=== PATIENT | female | born 1955 | race Caucasian/White ===

== ENCOUNTER 2017-04-12 17:08 | Inpatient (IN) ==
[2017-04-12 17:39] LABS: MANUAL DIFF NEEDED? NO
[2017-04-12 17:42] LABS: BASO% 0.4 % (0.0-0.8); EOS# 0.05 X1000 (0.0-0.7); EOS% 0.5 % (0.0-10.0); HEMATOCRIT 45.5 % (37.0-47.0); HEMOGLOBIN 16.4 g/dL (12.0-16.0); LYMPH# 3.56 X1000 (1.2-3.4); LYMPH% 36.6 % (20.5-51.1); MCH 30.8 PG (27-31); MCV 85.4 FL (81-99); MONO# 0.75 X1000 (0.11-0.59); MONO% 7.7 % (1.7-9.3); MPV 10.7 FL (7.4-10.4); NEUT% 54.8 % (42.2-75.2); PLT 322 X1000 (130-400); RBC 5.33 XMIL (4.2-5.4)
[2017-04-12 17:52] LABS: INR 1.02; PROTIME 10.7 Seconds (9.2-11.7); PTT 30.6 Seconds (22.0-36.0)
[2017-04-12 18:00] LABS: AGAP 24; ALBUMIN 4.3 g/dL (3.5-5.0); ALKALINE PHOSPHATASE 58 U/L (32-104); BUN 6 mg/dL (8-22); CALCIUM 10.4 mg/dL (8.8-10.2); CHLORIDE 93 mmol/L (98-107); COSMO 271; GOT 12 U/L (10-30); GPT 6 U/L (10-36); POTASSIUM 2.8 mmol/L (3.5-5.1); SODIUM 136 mmol/L (136-145); TCO2 19 mmol/L (25-35); TOTAL BILIRUBIN 0.58 mg/dL (0.20-1.00); TOTAL PROTEIN 7.5 g/dL (6.3-8.3)
[2017-04-12 18:42] LABS: URINE MICRO REVIEW NEEDED? NO; URINE SOURCE VOIDED
--- NOTE | 2017-04-12 18:45 | Diag Imaging Result Doc PS360 ---
EXAM: CHEST-PORTABLE - 04/12/2017 HISTORY: unkempt TECHNIQUE: Portable chest 1828 COMPARISON: 12/03/2012 FINDINGS: Heart size is normal. There are apparent mild emphysematous changes. There is a questionable small nodular density at the mid right chest, but this could be artifactual from summation shadows or skin fold. There is no consolidation, pleural effusion, or pneumothorax identified. IMPRESSION: Mild emphysematous changes. Questionable small nodular density at mid right chest versus artifact. Follow-up PA and lateral exam is recommended when patient's condition permits. No evidence of acute disease otherwise. Electronically signed by Bruno Espinoza 04/12/2017 6:42 PM
[2017-04-12 18:48] LABS: UR EPITHELIAL CELLS <10 /HPF (<10); URINE BACTERIA 2+ /HPF; URINE RBC <10 /HPF (<10); URINE WBC <10 /HPF (<10)
[2017-04-12 18:49] LABS: BILIRUBIN URINE NEGATIVE (NEGATIVE); BLOOD URINE NEGATIVE (NEGATIVE); COLOR YELLOW; GLUCOSE URINE NEGATIVE (NEGATIVE); LEUKOCYTES URINE NEGATIVE (NEGATIVE); NITRITE URINE NEGATIVE (NEGATIVE); PROTEIN URINE NEGATIVE (NEGATIVE); SP GRAVITY URINE 1.004; TURBIDITY URINE CLEAR (CLEAR); UROBILINOGEN URINE NORMAL (NORMAL)
[2017-04-12 19:02] LABS: UR AMPHETAMINES QUAL NONE DETECTED (NONE DETECT); UR BARBITUATES QUAL NONE DETECTED (NONE DETECT); UR BENZODIAZEPIN QUAL NONE DETECTED (NONE DETECT); UR CANNABINOIDS QUAL NONE DETECTED (NONE DETECT); UR COCAINE QUAL NONE DETECTED (NONE DETECT); UR METHADONE QUAL NONE DETECTED (NONE DETECT); UR OPIATES QUAL NONE DETECTED (NONE DETECT); UR OXYCODONE QUAL NONE DETECTED (NONE DETECT); UR PCP QUAL NONE DETECTED (NONE DETECT)
[2017-04-12] MEDS ORDERED: MICRO-K PO ONE (19:02)
--- NOTE | 2017-04-12 21:42 | HISTORY AND PHYSICAL ---
REASON FOR ADMISSION: Worsening generalized weakness for several months. Inability to stand today. HISTORY OF PRESENT ILLNESS: Ms. Hailey Zelaya is a 61-year-old lady with a past medical history of some unspecified psychotic illness, hyperlipidemia, reflux disease, arthritis and COPD. She comes in today by EMS after she called her sister to complain that she was unable to get up for the last 24 hours. Her sister in turn called the police and the police in turn called EMS who brought her in. The patient informs us that she had been trying to get her 's and son's attention to get her seen by neuropsychology medical consultant but because of her dwindling physical condition but they seem to not take it seriously. The patient reports that her appetite has been declining for several months and prior to that she has been having frequent gagging episodes whenever she eats anything especially liquids. She admits to subjective complaints of weight loss but unable to quantify actual weight loss over the last few months. She denies bleeding from any orifice. She denies any fever or chills. She denies any cardiorespiratory complaints. She says her exercise tolerance has significantly declined over the last few weeks but today was the worst day, i.e. being unable to stand on her own 2 feet. Other than the aforementioned gagging she denies any diarrhea or vomiting per se. No abdominal discomfort. She denies any focal neurological type symptoms, but she does complain that she has a dull persistent headache that makes her head feel very heavy. This has been going on for several months and she thinks it has been getting worse. No visual symptoms. REVIEW OF SYSTEMS: A 12 system review was noted as above. She does admit to having chronic auditory hallucinations which manifests some music that only she perceives. No visual hallucinations. No suicidal type ideation. She used to be followed by a psychiatric clinic but since she lost her insurance she has been unable to follow up. No mention of cramping, palpitations or any other symptoms. Patient is having dysphagia to liquids. ALLERGIES: Prozac, penicillin, sulfa. HOME MEDICATIONS: She is not on any home medications. SURGICAL HISTORY: She said she had an appendectomy with some bowel resection following peritonitis from a ruptured appendix. She also states she had 2 C-sections, cataract of the left eye, esophagus stretched out twice. FAMILY HISTORY: Heart disease and diabetes in first-degree relatives. SOCIAL HISTORY: The patient still smokes about a pack a day and thinks about quitting but has no active plan to quit at this time. No alcohol or drug use. She lives with her and son. LABORATORY DATA: White count 95, hemoglobin and hematocrit 16 and 45, platelets 332,000. Chemistry is notable for potassium of 2.8, bicarbonate of 19, anion gap 24, BUN and creatinine 6 and 0.5, glucose 121, calcium 10.4, albumin is normal, troponin is negative, UDS is negative. Urine source: 80 ketones, 2+ bacteria. Chest films shows mild emphysematous changes, questionable small nodes or density in the right lung versus artifact. EKG shows a lot of artifact, normal sinus rhythm, left axis deviation, nonspecific ST-wave changes in the lateral leads. PHYSICAL EXAMINATION: GENERAL: An emaciated, middle-aged, woman who appears older than stated age. She is alert and oriented to person and time with normal mood and affect. VITAL SIGNS: Pulse is 133, temperature 98.6, blood pressure 115/85, respiratory rate 18, 99% on room air. HEENT: Head is normocephalic, atraumatic. Eyes are slightly sunken in but NATALIA. EOMI. Anicteric. ENT examination is grossly normal. No oropharyngeal exudates. No cyanosis. NECK: Supple. No JVD or carotid bruit. No thyromegaly. CHEST: Decreased air entry both lung lovell. No added sounds. CARDIOVASCULAR: First and sounds heart sounds heard. No gallops or rubs. Rhythm is regular. ABDOMEN: Slightly scaphoid, soft, tender. No organomegaly. Bowel sounds are hypoactive. RECTAL EXAMINATION: Deferred at this time. EXTREMITIES: She has very weak distal pulses in all extremities. They are symmetrical. No edema, clubbing or cyanosis. NEUROLOGICAL: No focal deficits. SKIN: She has decreased skin turgor. She has a few tiny ulcerations on her back. MUSCULOSKELETAL EXAMINATION: Patient has severe diffuse muscular atrophy. No gross joint deformities. ASSESSMENT: 1. Severe malnutrition. 2. Hypokalemia. 3. Chronic obstructive pulmonary disease. 4. Right lung nodule. 5. Dysphagia. PLAN: 1. At this time we will aggressively hydrate patient, correct electrolytes. 2. Patient's lung nodule is somewhat worrisome especially since patient is losing weight. She has a smoking history. A CT scan of the thorax has been ordered and this needs to be followed. 3. What is also worrisome is the fact the patient has dysphagia, weight loss and she is a smoker. We will also need to rule out the possibility of squamous cell cancer of the esophagus. Upper GI series has been ordered. Consult Assistant Boiler Operator and dietitian. Start patient on Clinimix for supportive nutrition. 4. She also needs physical therapy. cc: Vadim Morin MD MTDD
[2017-04-12] MEDS ORDERED: ZOFRAN IV PRN (22:18)
[2017-04-12] MEDS ORDERED: NS + KCL 20 MEQ 1,000 ML IV SCH (22:18)
[2017-04-12] MEDS ORDERED: TYLENOL PO PRN (22:18)
[2017-04-12] MEDS ORDERED: CLINIMIX E 4.25%-5% SOLUTION 1,000 ML IV SCH (22:18)
[2017-04-12 23:20] LABS: MAGNESIUM 1.8 mg/dL (1.5-2.7)
[2017-04-13] MEDS: LOVENOX SUBQ SCH ×2 (00:19→00:23)
[2017-04-13] MEDS: THERA M PLUS PO SCH ×2 (00:20→10:13)
[2017-04-13 06:06] LABS: MANUAL DIFF NEEDED? NO
[2017-04-13 06:17] LABS: BASO% 0.2 % (0.0-0.8); EOS# 0.09 X1000 (0.0-0.7); EOS% 0.9 % (0.0-10.0); HEMATOCRIT 42.5 % (37.0-47.0); HEMOGLOBIN 15.2 g/dL (12.0-16.0); IMM GRAN# 0.02 X1000 (0.0-0.04); IMM GRAN% 0.2 % (0.0-0.5); LYMPH# 4.04 X1000 (1.2-3.4); LYMPH% 42.3 % (20.5-51.1); MCH 30.6 PG (27-31); MCHC 35.8 g/dL (33-37); MCV 85.5 FL (81-99); MONO# 0.47 X1000 (0.11-0.59); MONO% 4.9 % (1.7-9.3); MPV 10.9 FL (7.4-10.4); NEUT% 51.5 % (42.2-75.2); PLT 306 X1000 (130-400); RBC 4.97 XMIL (4.2-5.4)
[2017-04-13 06:27] LABS: AGAP 14; ALBUMIN 3.8 g/dL (3.5-5.0); ALKALINE PHOSPHATASE 52 U/L (32-104); BUN 8 mg/dL (8-22); CALCIUM 9.7 mg/dL (8.8-10.2); CHLORIDE 100 mmol/L (98-107); COSMO 282; GOT 9 U/L (10-30); GPT 5 U/L (10-36); POTASSIUM 3.4 mmol/L (3.5-5.1); SODIUM 142 mmol/L (136-145); TCO2 28 mmol/L (25-35); TOTAL BILIRUBIN 0.47 mg/dL (0.20-1.00); TOTAL PROTEIN 6.5 g/dL (6.3-8.3)
--- NOTE | 2017-04-13 09:21 | Diag Imaging Result Doc PS360 ---
EXAM: CT THORAX W/CONTRAST - 04/12/2017 HISTORY: Lung nodule TECHNIQUE: With intravenous contrast. Dose reduction protocol. COMPARISON: 12/15/2012 FINDINGS: There is a right lower lung calcified granuloma from old granulomatous disease which is stable. There is no noncalcified pulmonary nodular lesion identified. There are mild emphysematous changes. There is mild apical scarring. There is no consolidation, pleural effusion, or pneumothorax identified. There are calcified subcarinal mediastinal lymph nodes from old granulosis disease. There are scattered nonspecific small noncalcified mediastinal lymph nodes which appear stable. There are no abnormally enlarged mediastinal or hilar lymph nodes identified. Included sections of upper abdomen show stable 1.7 cm low-density right adrenal nodule, compatible with adenoma. There is a 0.8 cm left renal cyst. IMPRESSION: Mild emphysematous changes. Old granulomatous disease. No evidence of acute disease. No noncalcified pulmonary nodule seen. The air traffic control specialist center radiologist provided primary results at 11:46 PM on 04/12/2017. Electronically signed by Bruno Espinoza 04/13/2017 9:19 AM
--- NOTE | 2017-04-13 10:15 | Diag Imaging Result Doc PS360 ---
EXAM: GI SERIES WITH BA SWALLOW - 04/13/2017 HISTORY: dysphagia wt loss TECHNIQUE: Air contrast GI series with barium swallow. The fluoroscopy time is three minutes and 46 seconds. The radiation doses 1937.0 cGy centimeters square. COMPARISON: Barium swallow of 12/11/2012 FINDINGS: The patient was able to drink the barium and a relatively slow right. There is no esophageal mass or stricture identified. There is no obvious esophageal inflammation seen. There is relatively slow gastric emptying. There is a small amount retained debris in the stomach, this may relate to the patient not being nothing by mouth prior to the exam. There is no gastric outlet obstruction identified. There is no other discrete abnormality identified. There is no ulcer crater identified. IMPRESSION: Relatively slow gastric emptying. No other discrete abnormality identified. Electronically signed by Bruno Espinoza 04/13/2017 10:12 AM
--- NOTE | 2017-04-13 16:32 | PROGRESS NOTE ---
DATE: 04/13/2017 SUBJECTIVE: The patient is still weak, tired. Still limited p.o. intake. No throwing up. No diarrhea. OBJECTIVE: Vital signs: Blood pressure was 123/78, heart rate 115, respiratory 16, temperature 98.7 degrees, 96% on room air. Cardiovascular: Regular rate and rhythm. Pulmonary: Bilateral breath sounds. Clear to auscultation. GI: Soft, nontender, nondistended. Bowel sounds are positive. Abdomen exam benign but scaphoid. LABORATORY DATA: Normal CBC, normal CMP except for potassium 3.4. Liver enzymes were normal. Chest CT showed a nodule but no samson malignancy, mild emphysema, old granulomatous disease, really just not that remarkable. She does have a right adrenal nodule. Her upper GI series did not show obstruction. She had some slow gastric emptying but really otherwise there is certainly no explanation of her dysphagia. PROBLEM LIST: 1. Dysphagia. She reports that food gets stuck. She just cannot eat. There is no evidence of achalasia or stricture based on her upper GI series but because of rather severe weight loss I think we will have to progress with a GI workup or GI evaluation for endoscopy. I think she may need a CT scan of the abdomen because of the profound weight loss. I doubt she will get a scope this weekend and probably will not happen until Saturday. 2. Severe protein-calorie malnutrition. Will continue Clinimix. Dietary has been consulted. We will add Ensure to a diet, will add appetite stimulant and follow. 3. Chronic obstructive pulmonary disease appears to be compensated. Will continue treatment and follow. DISPOSITION: Pending her clinical course. cc: Arnoldo England MD
[2017-04-13] MEDS: NICODERM PATCH TD PRN (18:51)
[2017-04-13] MEDS: CLINIMIX E 4.25%-5% SOLUTION 1,000 ML IV SCH (19:26)
[2017-04-14] MEDS: LOVENOX SUBQ SCH ×2 (00:12→20:33)
[2017-04-14] MEDS: THERA M PLUS PO SCH ×3 (00:13→20:33)
[2017-04-14] MEDS: CLINIMIX E 4.25%-5% SOLUTION 1,000 ML IV SCH ×4 (00:13→19:56)
[2017-04-14] MEDS ORDERED: NS 1,000 ML IV SCH ×2 (05:39→08:17)
[2017-04-14] MEDS ORDERED: NS 1,000 ML IV ONE ×2 (05:39→08:20)
[2017-04-14] MEDS ORDERED: NS 1,000 ML ONE (05:47)
[2017-04-14 05:52] LABS: HEMATOCRIT 43.7 % (37.0-47.0); HEMOGLOBIN 15.5 g/dL (12.0-16.0); MCH 30.7 PG (27-31); MCHC 35.5 g/dL (33-37); MCV 86.5 FL (81-99); MPV 11.4 FL (7.4-10.4); RBC 5.05 XMIL (4.2-5.4)
[2017-04-14 06:29] LABS: AGAP 14; ALKALINE PHOSPHATASE 61 U/L (32-104); BUN 18 mg/dL (8-22); CALCIUM 9.9 mg/dL (8.8-10.2); CHLORIDE 101 mmol/L (98-107); COSMO 280; GOT 142 U/L (10-30); GPT 112 U/L (10-36); POTASSIUM 4.1 mmol/L (3.5-5.1); SODIUM 138 mmol/L (136-145); TCO2 23 mmol/L (25-35); TOTAL BILIRUBIN 0.38 mg/dL (0.20-1.00); TOTAL PROTEIN 5.5 g/dL (6.3-8.3)
[2017-04-14 08:40] LABS: URINE CULTURE NEEDED? NO; URINE MICRO REVIEW NEEDED? NO; URINE SOURCE CATH
[2017-04-14 08:46] LABS: BILIRUBIN URINE NEGATIVE (NEGATIVE); BLOOD URINE NEGATIVE (NEGATIVE); COLOR YELLOW; GLUCOSE URINE NEGATIVE (NEGATIVE); LEUKOCYTES URINE NEGATIVE (NEGATIVE); NITRITE URINE NEGATIVE (NEGATIVE); PROTEIN URINE NEGATIVE (NEGATIVE); SP GRAVITY URINE 1.004; TURBIDITY URINE HAZY (CLEAR); UR EPITHELIAL CELLS >10 /HPF (<10); URINE BACTERIA NEGATIVE /HPF; URINE RBC <10 /HPF (<10); URINE WBC <10 /HPF (<10); UROBILINOGEN URINE NORMAL (NORMAL)
--- NOTE | 2017-04-14 09:16 | Diag Imaging Result Doc PS360 ---
EXAM: ABDOMEN/PELVIS W/PO AND IV CON - 04/14/2017 HISTORY: weight loss, cachexia, dysphagia TECHNIQUE: With oral and intravenous contrast. Dose reduction protocol. COMPARISON: 12/15/2012 FINDINGS: There are artifacts from residual barium in stomach and bowel which limit detail. There are no substantial analysis of the liver, spleen, or pancreas identified. There is an apparent small right adrenal adenoma which is stable. There are no calcified gallstones or pericholecystic inflammation identified. The bilateral kidneys enhance homogeneously. There is no hydronephrosis. There are no substantial enlarged lymph nodes identified. There is no evidence of bowel obstruction. There is no substantial bowel wall thickening identified. There is no free air, free fluid, or abscess identified. Images of pelvis show a small amount of air in the urinary bladder lumen consistent with the presence of Arita catheter. There is no abnormal pelvic mass or fluid collection identified. IMPRESSION: No visible acute abnormality in the abdomen or pelvis. Electronically signed by Bruno Espinoza 04/14/2017 9:14 AM
--- NOTE | 2017-04-14 12:23 | Diag Imaging Result Doc PS360 ---
EXAM: CHEST-PORTABLE - 04/14/2017 HISTORY: fever TECHNIQUE: Portable chest 1200 COMPARISON: 04/12/2017 FINDINGS: Heart size is normal. The lungs appear clear. There is no pleural effusion or pneumothorax identified. IMPRESSION: No evidence of acute disease. Electronically signed by Bruno Espinoza 04/14/2017 12:21 PM
[2017-04-14] MEDS ORDERED: NS NEB INH SCH (12:30)
[2017-04-14] MEDS ORDERED: ELIMITE 5% CREAM TOP ONE (14:28)
[2017-04-14] MEDS: LEVAQUIN 750 MG/D5W 750 MG/150 ML IVPB IV SCH (14:32)
[2017-04-14] MEDS: NS 1,000 ML IV SCH ×2 (14:33→20:35)
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
[2017-04-14] MEDS: KEFZOL 1 GM/D5W 1 GM/50 ML IVPB IV SCH ×2 (16:04→22:17)
[2017-04-14] MEDS ORDERED: MOTRIN PO PRN (16:57)
[2017-04-14] MEDS ORDERED: NS 500 ML IV ONE (19:12)
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
[2017-04-15] MEDS: NEO-SYNEPHRINE 50 MG in NS 250 ML IV SCH ×2 (00:33→18:30)
[2017-04-15] MEDS ORDERED: MOTRIN PO PRN (01:30)
[2017-04-15] MEDS: MOTRIN PO PRN ×2 (01:36→13:21)
[2017-04-15] MEDS: KEFZOL 1 GM/D5W 1 GM/50 ML IVPB IV SCH ×3 (05:45→22:52)
[2017-04-15 05:57] LABS: HEMOGLOBIN 12.8 g/dL (12.0-16.0); MCH 30.9 PG (27-31); MCHC 34.6 g/dL (33-37); MCV 89.4 FL (81-99); MPV 12.1 FL (7.4-10.4); RBC 4.14 XMIL (4.2-5.4)
[2017-04-15 06:23] LABS: AGAP 13; ALBUMIN 2.6 g/dL (3.5-5.0); ALKALINE PHOSPHATASE 65 U/L (32-104); BUN 8 mg/dL (8-22); CALCIUM 8.6 mg/dL (8.8-10.2); CHLORIDE 104 mmol/L (98-107); COSMO 277; GOT 96 U/L (10-30); GPT 141 U/L (10-36); MAGNESIUM 1.7 mg/dL (1.5-2.7); POTASSIUM 3.6 mmol/L (3.5-5.1); SODIUM 139 mmol/L (136-145); TCO2 22 mmol/L (25-35); TOTAL BILIRUBIN 0.52 mg/dL (0.20-1.00)
--- NOTE | 2017-04-15 07:10 | EKG Report ---
Test Performed on : 04/14/2017 06:32:32 AM Test Reason : TACHYCARDIA Blood Pressure : / mmHG Vent. Rate : 120 BPM Atrial Rate : 120 BPM P-R Int : 142 ms QRS Dur : 086 ms QT Int : 320 ms P-R-T Axes : 025 037 -27 degrees QTc Int : 452 ms Sinus tachycardia. Low voltage QRS Nonspecific ST and T wave abnormality Abnormal ECG When compared with ECG of 12-APR-2017 17:12, (Unconfirmed) ST less depressed in high-lateral leads I and AVL T wave amplitude has decreased in V1-V2 Nonspecific ST depression far lateral precordial leads Confirmed by Javier Arias DO ([id number]) on 04/15/2017 5:29:01 PM
--- NOTE | 2017-04-15 07:28 | EKG Report ---
Test Performed on : 04/14/2017 5:18:57 PM Test Reason : RE ORDER Blood Pressure : / mmHG Vent. Rate : 142 BPM Atrial Rate : 153 BPM P-R Int : 000 ms QRS Dur : 082 ms QT Int : 364 ms P-R-T Axes : 000 -59 081 degrees QTc Int : 559 ms Supraventricular tachycardia. Left axis deviation due to LAFB noted inferiorly Cannot rule out Anterior infarct , age undetermined Abnormal ECG When compared with ECG of 14-APR-2017 06:32, (Unconfirmed) QRS axis shifted left Inferior leads ST segment depression slightly more noticeable in V4-V5 Poor R-wave progression V1-V2-V3 (R no longer present in V3 - new) Clinical Correlation advised Confirmed by Javier Arias DO ([id number]) on 04/15/2017 5:31:58 PM
[2017-04-15 08:59] LABS: HIV ANTIBODY SCREEN SEE COMMENTS
[2017-04-15 09:06] LABS: HEPATITIS PROFILE ACUTE SEE COMMENTS
[2017-04-15] MEDS: CLINIMIX E 4.25%-5% SOLUTION 1,000 ML IV SCH ×2 (09:11→13:21)
[2017-04-15] MEDS: THERA M PLUS PO SCH ×2 (09:11→21:02)
[2017-04-15] MEDS ORDERED: NS 1,000 ML IV ONE (09:42)
[2017-04-15] MEDS: NS 1,000 ML IV SCH ×3 (09:50→21:06)
[2017-04-15] MEDS ORDERED: VERSED ONE (10:28)
[2017-04-15] MEDS ORDERED: DIPRIVAN 1% ONE (10:28)
[2017-04-15] MEDS: LEVAQUIN 750 MG/D5W 750 MG/150 ML IVPB IV SCH (12:11)
[2017-04-15] MEDS: TYLENOL PO PRN (15:30)
--- NOTE | 2017-04-15 16:03 | PROGRESS NOTE ---
DATE: 04/15/2017 PRESENT ILLNESS: The patient has a bacteremia with gram-positive cocci in clusters which of course is due to a Staphylococcus. I suspect that she has a bacteremia arising from one of the excoriated areas on her body. I think also the patient was having extreme itching and scratching due to the probability that she had scabies. She has received treatment for this. MEDICATION: The patient yesterday was started on Ancef and also yesterday she got permethrin 5% cream to treat probable scabies. PHYSICAL EXAMINATION: Vital Signs: Temperature earlier was 102, now it is 99, pulse 75, respirations 15, blood pressure 120/50. General: This is a malnourished-appearing middle-aged female. She is in no acute distress. Integument: She has multiple excoriated areas. She also has diffuse erythema. Lungs: Clear to auscultation. Cardiovascular: Regular heart rate. Abdomen: Soft and nontender. Ears, nose and throat: Patient is missing many of her teeth and she has other areas where there are necrotic teeth that had been ground down into the gingiva. LABORATORY AND X-RAY: I did not see any new x-rays for today. Blood cultures growing gram positive cocci in clusters which undoubtedly will be identified as a Staphylococcus. Creatinine 0.4, GFR is greater than 60. The ALT is 141. The hepatitis panel and the antibodies to HIV are both negative. Today the patient had dilatation of her esophagus. Apparently there was a stricture in it which probably explains the patient's dysphagia. ASSESSMENT AND PLAN: 1. Patient has staph bacteremia. She also I think has scabies. She is being treated with Ancef for the bacteremia and she has had treatment with permethrin cream. 2. Patient's comorbidities: She lives in a house where there many insects which is where she probably got in contact with scabies. She also has become malnourished probably again because of the stricture in her esophagus which is preventing her from eating or at least eating well with solids. The patient also is malnourished which is certainly a comorbidity cc: Maximilian Blount MD
[2017-04-15] MEDS ORDERED: BLISTEX MEDICATED BERRY LIP BALM TOP PRN (17:19)
[2017-04-15] MEDS: SODIUM CHLORIDE 0.9% INJ SCH (18:30)
[2017-04-15] MEDS: PROTONIX IV SCH (18:30)
--- NOTE | 2017-04-15 19:24 | PROGRESS NOTE ---
DATE: 04/15/2017 SUBJECTIVE: The patient is resting comfortably in bed. She states that she is starting to feel a lot better. OBJECTIVE: Vital Signs: Temperature 100.6 degrees, blood pressure 120/50, heart rate 75, respirations 15, O2 saturations 100% on 2 L nasal cannula. General: This is a chronically ill- appearing elderly female lying on the stretcher in no acute distress. Head: Normocephalic, atraumatic. Heart: S1, S2. Normal. Tachycardic. Lungs: Clear to auscultation bilaterally. No crackles. No rales. Abdomen: Positive bowel sounds. Soft, nontender, nondistended. Extremities: The patient has multiple excoriations on her legs and arms. Neurologic: The patient is alert and oriented x3. LABS: White blood cell count 10, hemoglobin 12, hematocrit 37, platelets 179,000. Sodium 139, potassium 3.6, chloride 104, CO2 22, BUN 8, creatinine 0.4, glucose 112. ASSESSMENT AND PLAN: 1. Sepsis. The patient is requiring Hardik-Synephrine due to hypotension. The patient does have 1 blood culture that is positive for gram-positive cocci in clusters. Will continue on antibiotic therapy as directed by Dr. Blount. 2. Multiple excoriations on the skin. Will continue with Ancef as ordered by Dr. Blount. 3. Bacteremia. Will await the final blood culture results. Continue on IV antibiotic therapy. 4. Dysphagia. The patient is scheduled for an EGD today. Will await the report from the dry cleaning attendant. 5. Transaminitis. Will continue to monitor this closely. GI is following. 6. Severe protein calorie malnutrition. The patient is on Clinimix. 7. Deep vein thrombosis prophylaxis. Continue on Lovenox. cc: Katelyn Rincon MD
--- NOTE | 2017-04-15 20:02 | OPERATIVE NOTE ---
PROCEDURE DATE: 04/15/2017 ATTENDING SURGEON: Lavell Wu MD PROCEDURE: Esophagogastroduodenoscopy with esophageal dilation. PREOPERATIVE DIAGNOSES: 1. Dysphagia. 2. Malnutrition. 3. Pneumonia. 4. Chronic smoker. 5. Reflux disease. 6. History of use of nonsteroidal anti-inflammatory drugs. POSTOPERATIVE DIAGNOSES: 1. Normal esophagus in the proximal 3rd. 2. Z-line was at 35 cm. 3. Evidence of a Schatzki ring in the distal esophagus with 54-Romanian Champion dilation. 4. Erosive gastritis throughout the entire stomach moderate degree with small petechial hemorrhages noted with normal fundus, cardia incisura. 5. Duodenitis bulb. 6. Normal 2nd portion duodenum. ESTIMATED BLOOD LOSS: None. COMPLICATIONS: None. ANESTHESIA: Monitored anesthesia care. SPECIMEN: None. DESCRIPTION OF PROCEDURE: After informed consent from the patient, explaining the risks, benefits, indications, alternatives of EGD, the patient was brought to the OR. She was turned in the left lateral position. A bite block was placed. After adequate monitored anesthesia care, upper scope was introduced through the oral vestibule all the way to the 2nd portion of the duodenum. Esophagus was normal in the proximal middle third. Distal esophagus showed evidence of a Schatzki ring. The scope was able to pass the area. The Z-line was at 35 cm. There was evidence of erosive gastritis to a moderate degree in the entire stomach with petechial hemorrhages throughout the mucosa of the stomach body and antrum. Retroflexion revealed normal fundus, cardia, incisura. There was evidence of gastritis in the fundus, cardia and incisura. The duodenal bulb showed evidence of erythema and erosions suggesting erosive duodenitus. The 2nd portion of the duodenum appeared normal. The air was withdrawn. The patient underwent successful esophageal dilation with 54-Romanian Champion dilator. The patient tolerated the procedure well, is currently being monitored in the OR in stable condition. RECOMMENDATIONS: 1. The patient will be on Protonix twice daily for 4 weeks and then once daily for another 8 weeks. 2. We will start on Carafate 1 g 6 ounce every 12 hours. 3. We will start her on a full liquid diet and advance as tolerated. 4. We will avoid any NSAIDs and hold her ibuprofen in the hospital for now. 5. The patient will also avoid NSAIDs as an outpatient. 6. The patient was also counseled to quit smoking. 7. Further recommendations pending the hospital course. cc: MD Lavell Kaur MD MTDD
[2017-04-15] MEDS: LOVENOX SUBQ SCH (21:02)
[2017-04-16] MEDS: TYLENOL PO PRN ×2 (02:12→15:37)
[2017-04-16] MEDS: NS 1,000 ML IV SCH ×2 (02:16→11:49)
[2017-04-16 04:27] LABS: EOS# 0.32 X1000 (0.0-0.7); HEMATOCRIT 33.4 % (37.0-47.0); HEMOGLOBIN 11.6 g/dL (12.0-16.0); IMM GRAN# 0.03 X1000 (0.0-0.04); IMM GRAN% 0.4 % (0.0-0.5); LYMPH# 0.55 X1000 (1.2-3.4); LYMPH% 6.9 % (20.5-51.1); MANUAL DIFF NEEDED? YES; MCH 30.5 PG (27-31); MCHC 34.7 g/dL (33-37); MCV 87.9 FL (81-99); MONO% 1.3 % (1.7-9.3); MPV 11.7 FL (7.4-10.4); NEUT% 87.4 % (42.2-75.2); PLT 152 X1000 (130-400)
[2017-04-16 04:39] LABS: AGAP 11; ALKALINE PHOSPHATASE 65 U/L (32-104); BUN 10 mg/dL (8-22); CALCIUM 7.8 mg/dL (8.8-10.2); CHLORIDE 108 mmol/L (98-107); COSMO 274; GOT 20 U/L (10-30); GPT 53 U/L (10-36); MAGNESIUM 1.5 mg/dL (1.5-2.7); POTASSIUM 3.1 mmol/L (3.5-5.1); SODIUM 138 mmol/L (136-145); TCO2 19 mmol/L (25-35); TOTAL BILIRUBIN 0.36 mg/dL (0.20-1.00); TOTAL PROTEIN 4.2 g/dL (6.3-8.3)
[2017-04-16 04:56] LABS: BANDS 14 % (0-1); EOS 2 % (1-10); LYMPHS 6 % (21-51); MONO 2 % (1-9)
[2017-04-16] MEDS: CLINIMIX E 4.25%-5% SOLUTION 1,000 ML IV SCH ×2 (06:04→11:49)
[2017-04-16] MEDS: KEFZOL 1 GM/D5W 1 GM/50 ML IVPB IV SCH ×2 (06:07→14:20)
[2017-04-16] MEDS ORDERED: MAGNESIUM SULFATE 2 GM/S.W.I. 2 GM/50 ML IVPB IV ONE (06:22)
[2017-04-16] MEDS ORDERED: POTASSIUM CHLORIDE 60 MEQ in NS 500 ML IV ONE (06:22)
[2017-04-16 08:19] LABS: INR 0.99; PROTIME 10.4 Seconds (9.2-11.7)
[2017-04-16] MEDS: THERA M PLUS PO SCH ×2 (08:37→20:06)
[2017-04-16] MEDS ORDERED: NS 250 ML ONE (08:46)
[2017-04-16] MEDS: NEO-SYNEPHRINE 50 MG in NS 250 ML IV SCH (10:41)
--- NOTE | 2017-04-16 16:11 | CONSULTATION ---
DATE OF CONSULTATION: 04/13/2017 REASON FOR CONSULTATION: Dysphagia and weight loss. HISTORY OF PRESENT ILLNESS: A 61-year-old lady with chronic gastroesophageal reflux and COPD comes in with altered mental status and is quite cachectic. She had a barium swallow, which did not show esophageal obstruction however the patient says that she has significant problem with her taking her pills and anything solid. She had no problem drinking any liquids and it has been going on for several months which is getting worse. PAST MEDICAL HISTORY: 1. Hyperlipidemia. 2. Psychosis. 3. Depression. 4. Arthritis. 5. Chronic obstructive pulmonary disease. CURRENT MEDICATION: She is not taking any medicines. PAST SURGICAL HISTORY: 1. Appendectomy. 2. Small bowel resection at the same time. 3. Two C-sections. 4. Cataract of the left eye. 5. EGD with esophageal dilation x2. ALLERGIES: Allergic to penicillin and sulfa. SOCIAL HISTORY: Smokes about a pack a day and is trying to quit. No alcohol or drugs. She lives with her and son. REVIEW OF SYSTEMS: The 12 point review was negative other than what is described in the HPI. PHYSICAL EXAMINATION: Revealed this pleasant lady, cachectic, middle-aged, appears much older than her stated age.Vital Signs: Pulse about 100, temp 98.6 degrees, blood pressure 152/85, respiratory rate 18 to 20, 99% on room air. HEENT: No scleral icterus. Mild pallor. Neck: Supple. Trachea in the midline. Heart: Normal first and second heart sounds. Lungs: Decreased air entry in both lungs. Abdomen: Scaphoid. No organomegaly. No ascites. Bowel sounds present and normal. Extremities: She had decreased distal pulses. No clubbing or cyanosis. Neurological: No focal deficit. LABORATORY DATA: White count 95, hemoglobin and hematocrit 16 and 45. Potassium low at 2.8. BUN and creatinine normal. A CT of the abdomen was unrevealing and a barium swallow as above. IMPRESSION AND PLAN: 1. Severe malnutrition. 2. History of solid food dysphagia. Barium swallow is negative. She had esophageal dilation twice which has helped and she wants to have 1. 3. Chronic obstructive pulmonary disease. 4. Right lung nodule. RECOMMENDATIONS AND PLAN: We will proceed with upper GI endoscopy. She should get nutritional supplement. She is also getting a CT scan of the chest to evaluate the right leg nodule. We will follow her with you. Tentatively schedule for esophagogastroduodenoscopy Saturday. cc: Ciarra Russo MD
--- NOTE | 2017-04-16 16:13 | PROGRESS NOTE ---
DATE: 04/13/2017 SUBJECTIVE: Feels fine she. Transferred to the unit because she got hypotensive and confused. Has been resuscitated. Right now at this point, she is feeling fine. OBJECTIVE: Vital Signs: Heart rate in 120s, temp of 98 degrees, blood pressure 100/80, respiratory rate 20 on 2 L nasal cannula. HEENT: No scleral icterus. No pallor. Neck: Supple. Trachea midline. Heart: Normal first and second heart sounds. Lungs: Decreased air entry. Abdomen: Soft. Nontender. No organomegaly. Extremities: Unremarkable. LABORATORY DATA: The potassium is corrected. Otherwise no new changes see. IMPRESSION AND PLAN: 1. Malnutrition. 2. Dysphagia. 3. Chronic obstructive pulmonary disease. 4. Right lung nodule. We will proceed with upper GI endoscopy. I think she is stable enough, that she is hydrated and Anesthesia should clear her for endoscopy tomorrow. -5 cc: Ciarra Russo MD
[2017-04-16] MEDS: SODIUM CHLORIDE 0.9% INJ SCH (17:22)
[2017-04-16] MEDS: PROTONIX IV SCH (17:22)
--- NOTE | 2017-04-16 18:07 | PROGRESS NOTE ---
DATE: 04/16/2017 SUBJECTIVE: The patient is resting comfortably in bed. She states that she feels a lot better today. The patient is currently on a Hardik-Synephrine drip. OBJECTIVE: Vital Signs: Temperature 100.5 degrees, blood pressure 131/61, heart rate 99, respirations 24, O2 saturation is 100% on room air. General: This is a chronically ill- appearing, elderly female, lying in bed, in no acute distress. Head: Normocephalic, atraumatic. Skin: The patient has multiple areas of excoriation on the skin involving the arms and legs and chest and back. Heart: S1, S2. Normal. Regular rate and rhythm. Lungs: Clear to auscultation bilaterally. No wheezes. No rales. No rhonchi. Abdomen: Positive bowel sounds. Soft, nontender, nondistended. Extremities: No edema. No cyanosis. No calf tenderness. Neurologic: The patient is alert and oriented x3. LABS: White blood cell count 7.9, hemoglobin 11, hematocrit 33, platelets 152,000. Sodium 138, potassium 3.1, chloride 108, CO2 19, BUN 10, creatinine 0.3, glucose 94, AST 20, ALT 53, albumin 2. ASSESSMENT AND PLAN: 1. Sepsis. The patient is currently on Hardik-Synephrine plus IV antibiotic therapy. One bottle of the set of blood cultures came back positive for coagulase-negative Staphylococcus. We will continue with antibiotic therapy. Dr. Blount is following. 2. Scabies. The patient has been treated for this. 3. Erosive gastritis. Continue on IV Protonix. 4. Hypotension. We will attempt to wean off the Hardik-Synephrine. Will check a cortisol level in the morning. 5. Severe protein calorie malnutrition. Will start the patient on a full liquid diet and add Ensure with each meal. The patient is currently on Clinimix. 6. Deep vein thrombosis prophylaxis. Continue on Lovenox. cc: Katelyn Rincon MD
--- NOTE | 2017-04-16 18:57 | PROGRESS NOTE ---
DATE: 04/16/2017 PRESENT ILLNESS: The patient's bacteremia turned out to be 1 blood culture which grew a coagulase- negative Staph. This is a contaminant and does not require antibiotic treatment. The patient's lesions where she had scratching all clearing up very well. Unfortunately the patient has diffuse erythema. She is eating more and she says she feels much better. The eating is because of the fact that she had a stricture in the esophagus which was dilated. MEDICATIONS: Patient is on Ancef and previous to that she had permethrin cream to treat scabies. PHYSICAL EXAMINATION: Vital Signs: Temperature is 100.5 degrees, pulse 99, respirations 24, blood pressure 131/61. General: This is a malnourished appearing, middle-aged female who is in no acute distress. She does however look much better than she did 2-3 days ago. Integument: Most of the excoriated areas have cleared but the patient has a diffuse erythema. Lungs: Clear to auscultation. Cardiovascular: Heart rate is regular. Abdomen: Soft and nontender. Mouth: The patient has very poor oral hygiene including missing many teeth and necrotic teeth. LABS AND X-RAY: The CBC shows a white count of 7980, hemoglobin 11.6, and platelet count 152,000. Creatinine is 0.3. GFR is greater than 60. ASSESSMENT AND PLAN: As mentioned above, the patient does not have a bacteremia. The positive blood culture is a contaminant. I think she did have scabies and this is improved and also her excoriated areas have improved however she still has diffuse erythema which is the name for erythroderma. The patient is improving and still requires pressor support, I am going to keep going with the Anc. COMORBIDITIES: Include malnutrition. The patient lives in the house where there are many insects which is the main reason she had scabies. The patient is malnourished but that is improving since the dilatation of the esophagus. cc: Maximilian Blount MD
[2017-04-16] MEDS: LOVENOX SUBQ SCH (20:06)
[2017-04-17] MEDS: KEFZOL 1 GM/D5W 1 GM/50 ML IVPB IV SCH ×4 (00:02→22:41)
[2017-04-17] MEDS: CLINIMIX E 4.25%-5% SOLUTION 1,000 ML IV SCH ×2 (02:11→14:02)
[2017-04-17] MEDS: NS 1,000 ML IV SCH ×2 (02:11→15:07)
[2017-04-17 05:00] LABS: BASO% 0.8 % (0.0-0.8); EOS# 0.33 X1000 (0.0-0.7); EOS% 6.7 % (0.0-10.0); HEMOGLOBIN 10.4 g/dL (12.0-16.0); LYMPH# 1.01 X1000 (1.2-3.4); LYMPH% 20.4 % (20.5-51.1); MANUAL DIFF NEEDED? YES; MCH 30.4 PG (27-31); MCHC 34.7 g/dL (33-37); MCV 87.7 FL (81-99); MONO# 0.33 X1000 (0.11-0.59); MONO% 6.7 % (1.7-9.3); MPV 12.2 FL (7.4-10.4); NEUT% 65.4 % (42.2-75.2); PLT 156 X1000 (130-400); RBC 3.42 XMIL (4.2-5.4)
[2017-04-17 05:19] LABS: MAGNESIUM 1.9 mg/dL (1.5-2.7)
[2017-04-17 05:26] LABS: AGAP 10; ALKALINE PHOSPHATASE 76 U/L (32-104); BUN 7 mg/dL (8-22); CHLORIDE 107 mmol/L (98-107); COSMO 278; GOT 12 U/L (10-30); GPT 31 U/L (10-36); POTASSIUM 3.7 mmol/L (3.5-5.1); SODIUM 140 mmol/L (136-145); TCO2 23 mmol/L (25-35); TOTAL BILIRUBIN 0.21 mg/dL (0.20-1.00); TOTAL PROTEIN 4.3 g/dL (6.3-8.3)
[2017-04-17 07:00] LABS: BANDS 4 % (0-1); EOS 4 % (1-10); LYMPHS 20 % (21-51); MONO 4 % (1-9)
[2017-04-17] MEDS: THERA M PLUS PO SCH ×2 (08:53→20:38)
[2017-04-17] MEDS: NICODERM PATCH TD PRN (13:26)
--- NOTE | 2017-04-17 16:45 | PROGRESS NOTE ---
DATE: 04/17/2017 SUBJECTIVE: The patient is resting in bed. She has been feeling better. She is eating better. She denies any fevers, rigors, chills. Denies any nausea or vomiting or dysphagia. She denies any vomiting blood. She has not had a bowel movement the last 3-4 days. OBJECTIVE: Vital signs: Temperature 99.3, pulse of 96, respiratory 21, blood pressure 159/83, satting 100% on room air. General Appearance: Thinly built, lying in bed, in no distress. HEENT: No icterus. Neck: Supple. Abdomen: Soft, nontender, nondistended. Bowel sounds are present. Extremities: No cyanosis, clubbing. Neurologic: She was awake and alert, oriented times. LABS: Hemoglobin and hematocrit is 10.4 and 30, white count 4.95, platelet count of 156. Sodium 140, potassium 3.7 chloride 107, bicarbonate 23, anion gap 10. BUN of 7, creatinine 0.3, glucose of 102, calcium is 8, phosphorus is 2.5, magnesium 1.9. Total bilirubin is 0.21. AST 12 and ALT 31, alkaline phosphatase 72, total protein 4.3, albumin of 2. Heavy metal screen is negative. Hepatitis panel is nonreactive. HIV is nonreactive. Blood culture times one showed coagulase- negative Staph aureus. DIAGNOSES.: 1. Dysphagia which is improved after esophageal dilation. She will continue to advance the diet. She is going to chew the food properly. 2. Acid reflux disease. The patient is to get proton pump inhibitors once daily for 3 months and then wean down to Zantac 150 mg p.o. b.i.d. 3. Scabies, now being treated per the primary team. 4. Positive one set of blood cultures with coagulase-negative Staph aureus being followed by Dr. Blount, currently on antibiotics. 5. Severe protein calorie malnutrition. She will continue on Ensure 3 times daily. She is also on Clinimix at this moment. We will advance the diet to soft diet today. 6. Gastrointestinal prophylaxis proton pump inhibitors. 7. Constipation. Will start Dulcolax suppository once daily. 8. Further recommendations to follow. cc: MD Katelyn Chandra MD Leroy F. Harris, MD
[2017-04-17] MEDS: PROTONIX IV SCH (17:23)
--- NOTE | 2017-04-17 19:30 | PROGRESS NOTE ---
DATE: 04/17/2017 SUBJECTIVE: The patient is awake and alert. She states that she feels good today. The patient is still having recurrent fever. OBJECTIVE: Vital Signs: Temperature maximum 100.5 degrees, blood pressure 136/67, heart rate 89, respirations 16, O2 saturations 98% on room air. General: This is an elderly female, lying in bed, in no acute distress. Head: Normocephalic, atraumatic. Heart: S1, S2. Normal. Regular rate and rhythm. Lungs: Clear to auscultation bilaterally. No crackles. No rales. Abdomen: Positive bowel sounds. Soft, nontender, nondistended. Extremities: No edema. No cyanosis. No calf tenderness. Neurologic: The patient is alert and oriented x3. LABORATORY: White blood cell count 4.9, hemoglobin 10, hematocrit 30, platelets 156,000. Sodium 140, potassium 3.7, chloride 107, CO2 23, BUN 7, creatinine 0.3, glucose 102, phosphorus 2.5. ASSESSMENT AND PLAN: 1. Recurrent fever. The patient only had 1 bottle out of the blood culture that grew out coagulase-negative staph which was determined to be a contaminant. We will continue with antibiotic therapy as directed by Dr. Blount. We will repeat the blood cultures. 2. Status post esophageal dilation. Improved. We will advance the patient to a gastrointestinal soft diet. 3. Gastritis and duodenitis. Continue on Protonix. 4. Scabies with diffuse erythema. The patient has been treated. 5. Hypophosphatemia. We will start the patient on Neutra-Phos. 6. Tobacco dependence. Continue on the NicoDerm patch. 7. Deep venous thrombosis prophylaxis. Continue on Lovenox. 8. The patient is stable for transfer to the medical floor. We will consult physical therapy. cc: Katelyn Rincon MD
--- NOTE | 2017-04-17 20:31 | PROGRESS NOTE ---
DATE: 04/17/2017 PRESENT ILLNESS: The patient had scabies. I think this was responsible for a lot of her itching and many excoriated areas on her body, which may have become secondarily infected. The patient does have a diffuse erythroderma, the etiology of which is uncertain to me. It appears to be fading. The patient also was unable to eat, but she is since her esophagus has been dilated, she has got a good appetite and is eating well. MEDICATIONS: The patient is Ancef. She previously had permethrin cream to treat scabies. I will be repeating the permethrin cream treatment. PHYSICAL EXAMINATION: Vital Signs: Temperature is 99.3 degrees, pulse 89, respirations 16, blood pressure 136/67. General: The patient nutrition appears to be improving. She is not as malnourished appearing as she was earlier. Lungs: Clear to auscultation. Cardiovascular: Regular heart rate. Abdomen: Soft and nontender. Integument: As mentioned above, the diffuse erythematous rash is getting better. LABORATORY AND X-RAY: CBC today showed a white count of 4950, hemoglobin 10.4, and platelet count 156,000. Creatinine 0.3, GFR is greater than 60. ASSESSMENT AND PLAN: 1. I plan to continue with the patient's Ancef. I plan to repeat her scabies treatment with permethrin approximately a week after the 1st one. 2. Comorbidities include malnutrition and the fact that where she lives, she has been exposed to many insects. cc: Maximilian Blount MD
[2017-04-17] MEDS: LOVENOX SUBQ SCH (20:38)
[2017-04-17] MEDS: DULCOLAX PR SCH (20:38)
[2017-04-17] MEDS ORDERED: NEUTRA-PHOS PO SCH (21:00)
[2017-04-18 05:21] LABS: HEMATOCRIT 30.3 % (37.0-47.0); HEMOGLOBIN 10.3 g/dL (12.0-16.0); MCH 29.9 PG (27-31); MCV 87.8 FL (81-99); MPV 10.7 FL (7.4-10.4); RBC 3.45 XMIL (4.2-5.4)
[2017-04-18 05:46] LABS: AGAP 11; ALBUMIN 2.2 g/dL (3.5-5.0); ALKALINE PHOSPHATASE 85 U/L (32-104); BUN 5 mg/dL (8-22); CHLORIDE 103 mmol/L (98-107); COSMO 278; GOT 13 U/L (10-30); GPT 22 U/L (10-36); POTASSIUM 3.4 mmol/L (3.5-5.1); SODIUM 141 mmol/L (136-145); TCO2 27 mmol/L (25-35); TOTAL BILIRUBIN 0.23 mg/dL (0.20-1.00); TOTAL PROTEIN 4.7 g/dL (6.3-8.3)
[2017-04-18] MEDS: NS 1,000 ML IV SCH ×2 (06:20→17:34)
[2017-04-18] MEDS: KEFZOL 1 GM/D5W 1 GM/50 ML IVPB IV SCH ×3 (06:22→23:55)
[2017-04-18] MEDS ORDERED: KLOR-CON PO ONE (06:32)
[2017-04-18] MEDS: THERA M PLUS PO SCH ×2 (08:21→20:48)
[2017-04-18] MEDS: VITAMIN D PO SCH (08:21)
[2017-04-18] MEDS: TYLENOL PO PRN (12:21)
--- NOTE | 2017-04-18 15:38 | PROGRESS NOTE ---
DATE: 04/18/2017 SUBJECTIVE: The patient is resting in bed. She is feeling better. She denies any fevers, rigors, or chills. She is eating better. She denies any nausea, vomiting, vomiting blood, or passing blood in the stools. She moved her bowels last night. OBJECTIVE: Vital signs: Temperature 98.9, pulse of 85, respiratory rate 18, blood pressure 149/70, saturating 98% on room air. General Appearance: Thinly built, lying in bed, in no distress. HEENT: Mild pallor. No icterus. Neck: Supple. Abdomen: Soft, nontender, nondistended. Bowel sounds noted. No rebound. No guarding. Extremities: No cyanosis or clubbing. Neurologic: She is alert, awake, oriented. LABORATORIES: Hemoglobin and hematocrit are 10.3 and 30.3, white count of 7.03 , platelet count of 181. Sodium 141, potassium 3.4 chloride 103, BUN of 5, glucose of 93, calcium is 8, phosphorus 3.7, total bilirubin is 0.23, AST 13, ALT 12, alkaline phosphatase 85, total protein 4.7, albumin of 2.2. IMPRESSION AND PLAN: 1. Dysphagia, which has improved with esophageal dilation. She will continue to advance the diet. Recommend that she chew food properly. 2. Severe protein-calorie malnutrition. She will do Ensure, 3 to 4 cans daily. We can wean down her Clinimix, if okay by primary team. She is eating better now. 3. Constipation. We will keep her on Dulcolax once daily. 4. Scabies. Undergoing treatment by primary team. 5. Coagulase-negative staphylococcus aureus in 1 blood culture. Currently being treated by Dr. Blount, on antibiotics. 6. Acid reflux. Continue on Protonix once daily for 3 months and switch to Zantac 150 mg p.o. b.i.d. When she is discharged to the long term, she will need to be on Protonix once daily for 3 months, MiraLAX 17 g twice daily. Above plan was discussed with the patient. cc: Lavell Wu MD [facility] CENTERCarolynn
[2017-04-18] MEDS: PROTONIX IV SCH (17:34)
[2017-04-18] MEDS: SODIUM CHLORIDE 0.9% INJ SCH (17:34)
--- NOTE | 2017-04-18 17:37 | PROGRESS NOTE ---
DATE: 04/18/2017 SUBJECTIVE: The patient is resting comfortably in bed. No acute events noted overnight. OBJECTIVE: Vital Signs: Temperature 98.2, blood pressure 149/70, heart rate 87, respirations 18, O2 saturations 100% on room air. General: This is an elderly female, lying in bed, in no acute distress. Skin: The patient continues to have erythema involving the chest, shoulders, arms, legs and back. Heart: S1, S2 normal. Regular rate and rhythm. Lungs: Clear to auscultation bilaterally. No crackles. No rales. Abdomen: Positive bowel sounds. Soft, nontender, nondistended. Extremities: No edema. No cyanosis. No calf tenderness. Neurologic: The patient is alert and oriented x3. LABS: White blood cell count 7, hemoglobin 10, hematocrit 30, platelets 181. Sodium 141, potassium 3.4, chloride 103, CO2 of 27, BUN 5, creatinine 0.3, glucose 93. ASSESSMENT AND PLAN: 1. Scabies with diffuse erythroderma. Continue on Ancef as directed by Dr. Blount. 2. Dysphagia status post esophageal dilation. Improved. The patient is tolerating her diet without any difficulty. 3. Vitamin D deficiency. We will start the patient on vitamin D replacement. 4. Gastritis and duodenitis. Continue on Protonix. 5. Tobacco dependence. Continue on the NicoDerm patch. 6. Deep vein thrombosis prophylaxis. Continue on Lovenox. 7. Continue with physical therapy. cc: Katelyn Rincon MD
[2017-04-18] MEDS: LOVENOX SUBQ SCH (20:48)
[2017-04-18] MEDS: DULCOLAX PR SCH (20:48)
[2017-04-19] MEDS: KEFZOL 1 GM/D5W 1 GM/50 ML IVPB IV SCH (05:47)
[2017-04-19 06:33] LABS: HEMATOCRIT 29.8 % (37.0-47.0); HEMOGLOBIN 10.1 g/dL (12.0-16.0); MCH 30.1 PG (27-31); MCHC 33.9 g/dL (33-37); MCV 88.7 FL (81-99); MPV 10.7 FL (7.4-10.4); RBC 3.36 XMIL (4.2-5.4)
[2017-04-19 06:59] LABS: AGAP 8; ALBUMIN 2.8 g/dL (3.5-5.0); ALKALINE PHOSPHATASE 113 U/L (32-104); BUN 6 mg/dL (8-22); CALCIUM 8.6 mg/dL (8.8-10.2); CHLORIDE 103 mmol/L (98-107); COSMO 280; GOT 19 U/L (10-30); GPT 21 U/L (10-36); SODIUM 142 mmol/L (136-145); TCO2 31 mmol/L (25-35); TOTAL BILIRUBIN 0.19 mg/dL (0.20-1.00); TOTAL PROTEIN 5.3 g/dL (6.3-8.3)
[2017-04-19] MEDS: NS 1,000 ML IV SCH ×2 (08:28→22:53)
[2017-04-19] MEDS: THERA M PLUS PO SCH ×2 (08:28→22:53)
[2017-04-19] MEDS ORDERED: ELIMITE 5% CREAM TOP ONE (09:00)
[2017-04-19] MEDS: TYLENOL PO PRN (09:02)
--- NOTE | 2017-04-19 09:36 | PROGRESS NOTE ---
DATE: 04/19/2017 PRESENT ILLNESS: The patient had scabies. She has received 1 treatment with permethrin. Patient also had multiple excoriated areas that looked infected and also diffuse erythema. I suspect that the patient had infection due to the fact that she had scabies and she scratched a lot and caused a secondary bacterial infection. Patient also had difficulty eating, but this was due to an esophageal stricture, which has been dilated and now the patient can eat very well. MEDICATIONS: The patient is on Ancef. She previously had permethrin cream. PHYSICAL EXAMINATION: Vital Signs: Temperature is 98.8, pulse 101, respirations 14, blood pressure 130/53. General: This is a chronically ill-appearing, middle-aged female. She is in no acute distress. She looks like she has come a long way since when she came in. Integument: The patient's erythroderma is fading and all the excoriated areas have healed. Lungs: Clear to auscultation. Cardiovascular: Regular heart rate. Abdomen: Soft and nontender. I should also mention too, the patient is putting on some weight now that she is able to eat and she does not look nearly as emaciated as she did when she came in. LAB AND X-RAY: Today, the CBC shows a white count of 10,940. Hemoglobin 10.1 and platelet count 232,000. Creatinine is 0.4. GFR is greater than 60. There is no new radiographic study. ASSESSMENT AND PLAN: Patient has scabies, I am going to go ahead and give her another treatment with permethrin today because she is going to be going to [facility] on a permanent basis. Also, since the patient's excoriated areas have healed and the skin and the erythroderma is fading, and almost all gone, I am stopping Ancef. From an infectious disease point of view, I think the patient can be discharged today. When she does go, her PICC will need to be removed. I am going to also order to remove the PICC before the patient leaves for [facility]. COMORBIDITIES: The patient's comorbidities included malnutrition and exposure to multiple insects. cc: Maximilian Blount MD
--- NOTE | 2017-04-19 11:43 | DISCHARGE SUMMARY ---
ADMISSION DATE: 04/12/2017 DISCHARGE DATE: 04/19/2017 FINAL DISCHARGE DIAGNOSES: 1. Sepsis. 2. Scabies. 3. Diffuse erythroderma. 4. Dysphagia status post esophageal dilation. 5. Vitamin D deficiency. 6. Gastritis. 7. Duodenitis. 8. Tobacco dependence. CONSULTATIONS REQUESTED DURING THIS HOSPITAL STAY: 1. Infectious Disease consultation with Dr. Maximilian Blount. 2. GI consultation with Dr. Wu. PROCEDURES PERFORMED DURING THIS HOSPITAL STAY: EGD with esophageal dilation performed on 04/15/2017. It revealed erosive gastritis throughout the entire stomach and duodenitis. HOSPITAL COURSE: Ms. Zelaya is a 62-year-old female who was brought to the ER with generalized weakness and weight loss over the last several months. On admission, the patient was noted to be severely malnourished with diffuse muscular atrophy she was also hypokalemic and having difficulty swallowing. A CT of the chest was done that revealed mild emphysematous changes but no active infection was seen. The patient also underwent a CT of the abdomen and pelvis that was unremarkable as well. The patient was noted to be febrile and hypotensive so the patient was admitted to the ICU. Blood cultures and a urine culture were obtained and the patient was started on broad-spectrum antibiotics. Despite being on antibiotics the patient continued to have persistent fevers. After further examination, the patient was noted to have scabies with erythroderma. The patient was treated with permethrin which resulted in improvement in the patient's skin lesion. The patient was also treated with Ancef. The patient did require pressor support for about 2 days but eventually that was able to be weaned off. GI was consulted due to the patient's difficulty with swallowing. The patient underwent the EGD on 03/2017 at which time esophageal dilation was performed. The patient was also noted to have erosive gastritis throughout the stomach as well as duodenitis. The patient was placed on a proton pump inhibitor and her diet was slowly advanced. The patient was able to tolerate her diet without any difficulties. The patient continued to improve clinically and was ultimately transferred to the medical floor. The patient was seen by physical therapy and it was determined after evaluation by case management that the patient would benefit from rehab. The patient continued to improve clinically and is stable for discharge to rehab. DISCHARGE MEDICATIONS: 1. Vitamin D2 50,000 units oral every 7 days on . 2. Protonix 40 mg p.o. daily. 3. Multivitamin 1 tab oral twice a day. 4. MiraLAX 17 g p.o. daily. DISCHARGE DIET: Heart healthy diet. ACTIVITY: As tolerated. FOLLOWUP INSTRUCTIONS: The patient will need to follow up with the primary care physician of her choice upon discharge from rehab. cc: Katelyn Rincon MD MTDD
[2017-04-19] MEDS: SODIUM CHLORIDE 0.9% INJ SCH (17:35)
[2017-04-19] MEDS: PROTONIX IV SCH (17:35)
[2017-04-19] MEDS: XOPENEX NEB INH PRN (19:18)
[2017-04-19] MEDS: LOVENOX SUBQ SCH (22:53)
[2017-04-19] MEDS: DULCOLAX PR SCH (22:54)
[2017-04-20 07:30] LABS: HEMATOCRIT 32.5 % (37.0-47.0); MCH 30.1 PG (27-31); MCHC 33.8 g/dL (33-37); MPV 10.3 FL (7.4-10.4); RBC 3.65 XMIL (4.2-5.4)
[2017-04-20 07:43] LABS: POTASSIUM 3.9 mmol/L (3.5-5.1)
[2017-04-20] MEDS: THERA M PLUS PO SCH ×2 (09:32→21:11)
[2017-04-20] MEDS: LOVENOX SUBQ SCH (21:11)
[2017-04-20] MEDS: DULCOLAX PR SCH (21:11)
[2017-04-21 06:40] LABS: AGAP 11; BUN 10 mg/dL (8-22); CALCIUM 9.4 mg/dL (8.8-10.2); CHLORIDE 101 mmol/L (98-107); COSMO 280; POTASSIUM 4.7 mmol/L (3.5-5.1); SODIUM 141 mmol/L (136-145); TCO2 29 mmol/L (25-35)
[2017-04-21 06:53] LABS: HEMATOCRIT 33.8 % (37.0-47.0); HEMOGLOBIN 11.6 g/dL (12.0-16.0); MCH 30.9 PG (27-31); MCHC 34.3 g/dL (33-37); MCV 89.9 FL (81-99); MPV 9.8 FL (7.4-10.4); RBC 3.76 XMIL (4.2-5.4)
[2017-04-21] MEDS: XOPENEX NEB INH PRN (07:43)
[2017-04-21] MEDS: THERA M PLUS PO SCH ×2 (08:04→22:22)
--- NOTE | 2017-04-21 16:41 | PROGRESS NOTE ---
DATE: 04/21/2017 SUBJECTIVE: The patient is resting comfortably in bed. She has no complaints today. She is eating and having regular bowel movements. OBJECTIVE: Vital Signs: Temperature 98.9 degrees, blood pressure 115/56, heart rate 96, respirations 18, O2 saturation is 97% on room air. General: This is an elderly female, lying in bed, in no acute distress. Head: Normocephalic, atraumatic. Heart: S1, S2. Normal. Regular rate and rhythm. Lungs: Clear to auscultation bilaterally. Abdomen: Positive bowel sounds. Soft, nontender, nondistended. Extremities: No edema. No cyanosis. No calf tenderness. Neurologic: The patient is alert oriented x3. LABS: Reviewed. ASSESSMENT AND PLAN: 1. Sepsis. Resolved. 2. Diffuse erythroderma. Resolving. 3. Scabies. The patient has received treatment and this has improved. 4. Dysphagia status post esophageal dilation. Improved. The patient is tolerating her diet without any difficulty. 5. Vitamin D deficiency. Continue on vitamin D replacement. 6. Gastritis and duodenitis. Continue on omeprazole. 7. Tobacco dependence. The patient has been counseled about smoking cessation. 8. Deep vein thrombosis prophylaxis. Continue on Lovenox. 9. Disposition. The patient is stable for discharge to rehab once a bed is available. cc: Katelyn Rincon MD MTDD
[2017-04-21] MEDS: LOVENOX SUBQ SCH (22:22)
[2017-04-21] MEDS: DULCOLAX PR SCH ×2 (22:22→22:24)
--- NOTE | 2017-04-22 03:57 | PROGRESS NOTE ---
DATE: 04/20/2017 SUBJECTIVE: The patient is resting comfortably in bed. The erythema on her skin has improved. OBJECTIVE: Vital Signs: Temperature 98 degrees, blood pressure 118/61, heart rate 89, respirations 16, O2 saturations 97% on room air. General: This is an elderly female lying in bed in no acute distress. Head: Normocephalic, atraumatic. Heart: S1, S2. Normal. Regular rate and rhythm. Skin: There is decreased erythema and on the patient's skin. Lungs: Clear to auscultation bilaterally. No crackles, no rales. Abdomen: Positive bowel sounds, soft, nontender, nondistended. Extremities: No edema, no cyanosis, no calf tenderness. Neuro: The patient is alert and oriented x3. LABS: White blood cell count 10, hemoglobin 11, hematocrit 32, platelets 335,000, potassium 3.9, phosphorus 4.9, magnesium 2. ASSESSMENT AND PLAN: 1. Scabies with diffuse erythroderma. Improved. The patient has completed therapy with Ancef and received another treatment with Permethrin 5% cream yesterday. 2. Vitamin D deficiency. Continue on vitamin D replacement. 3. Tobacco dependence. The patient has been counseled about smoking cessation. 4. Gastritis and duodenitis. Continue on Protonix. 5. Dysphagia status post esophageal dilation. Improved. 6. Deep vein thrombosis prophylaxis. Continue on Lovenox. 7. Continue with physical therapy. 8. Disposition. The patient will be discharged to rehab once placement has been obtained. cc: Katelyn Rincon MD
[2017-04-22] MEDS: PRILOSEC PO SCH (06:29)
--- NOTE | 2017-04-22 07:09 | PROGRESS NOTE ---
DATE: 04/22/2017 PRESENT ILLNESS: The patient when she came in had scabies. She had severe scratching because of that and she developed cellulitis and eventually erythroderma. She has been treated for her scabies and for her cellulitis. She had esophageal stricture, which was preventing her from eating. That has been cleared by dilatation and now she has got a very good appetite. She told me now she is not itching and she feels much better. MEDICATIONS: She is on no antibiotics. PHYSICAL EXAMINATION: Vital Signs: Temperature is 98.2 degrees, pulse 96, respirations 12, blood pressure 96/53. Generally: This is a somewhat malnourished-appearing, middle- aged female. She looks so much better than when she came in. Integument- all the erythema and excoriated areas on her body appear to have cleared. Lungs: Clear to auscultation. Cardiovascular : Heart rate is regular. Abdomen: Soft and nontender. LAB AND X-RAY: The patient[place] [address], hemoglobin 11.6, and platelet count 443,000. Patient's creatinine was 0.5, the GFR was greater than 60. There is no new radiographic study. ASSESSMENT AND PLAN: Patient's illnesses have all cleared. From Infectious Disease point of view, I do not think she needs any further antibiotics or any further repeated courses of permethrin. The patient's comorbidities initially where she he had very poor nutrition, she also lived where there were multiple roaches and other insects I and she had developed scabies from that. Now, the patient will be going to a long-term on a permanent basis. Hopefully, her progress will continue. I am signing off for now. I am available to see the patient on a p.r.n. basis. cc: Maximilian Blount MD MTDD
[2017-04-22] MEDS: THERA M PLUS PO SCH ×2 (08:52→20:20)
[2017-04-22] MEDS: NICODERM PATCH TD PRN (12:32)
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
[2017-04-22] MEDS: LOVENOX SUBQ SCH (20:20)
[2017-04-22] MEDS: DULCOLAX PR SCH (20:22)
[2017-04-23] MEDS: PRILOSEC PO SCH (06:41)
[2017-04-23 06:46] LABS: HEMATOCRIT 33.4 % (37.0-47.0); HEMOGLOBIN 11.2 g/dL (12.0-16.0); MCH 31.2 PG (27-31); MCHC 33.5 g/dL (33-37); MPV 9.4 FL (7.4-10.4); RBC 3.59 XMIL (4.2-5.4)
[2017-04-23 07:15] LABS: AGAP 12; BUN 12 mg/dL (8-22); CALCIUM 9.8 mg/dL (8.8-10.2); CHLORIDE 99 mmol/L (98-107); COSMO 278; POTASSIUM 4.3 mmol/L (3.5-5.1); SODIUM 139 mmol/L (136-145); TCO2 28 mmol/L (25-35)
[2017-04-23] MEDS: THERA M PLUS PO SCH ×3 (08:17→22:19)
--- NOTE | 2017-04-23 15:46 | PROGRESS NOTE ---
DATE: 04/23/2017 SUBJECTIVE: Today, Ms. Zelaya refers to be doing fine. She did not have any complaints. A male relative at the bedside at the time of the encounter. OBJECTIVE: Vital signs: Blood pressure is 129/51, pulse of 98, respirations 20, temperature is 97.4. General: Ms. Zelaya is a 62-year-old, female. She was in bed. She did not seem to be in any distress. HEENT: Mucosa is pink and moist. Anicteric. Acyanotic. Neck: Supple. Chest: Clear bilaterally. No crepitations, no rhonchi. Cardiovascular: Regular rate and rhythm. There are no murmurs, no rubs, no gallops. Abdomen: Soft, nontender. Bowel sounds are present. Extremities: No pedal edema. PRESS SET UP PERSON: Patient is awake, alert, oriented x4. There are no focal neurological deficits. LABORATORY DATA: WBC is 10.30, hemoglobin is 11.2, platelet count of 526. Chemistries reviewed, completely normal. ASSESSMENT: 1. Sepsis on presentation resolved. 2. Cellulitis and erythroderma, resolved. 3. Dysphagia, status post esophageal dilation. 4. Vitamin D deficiency. We will continue to replace this. 5. Tobacco dependence. The patient is counseled. PLAN: At this time, the patient is waiting for a bed. Just a while ago, I was told that [facility] will [facility] have a bed for her tomorrow. cc: Bryson Linton MD
[2017-04-23] MEDS: DULCOLAX PR SCH ×2 (19:52→22:18)
[2017-04-23] MEDS: LOVENOX SUBQ SCH ×2 (19:52→22:19)
[2017-04-24] MEDS: PRILOSEC PO SCH (06:10)
[2017-04-24] MEDS: XOPENEX NEB INH PRN ×2 (07:45→14:53)
[2017-04-24] MEDS: THERA M PLUS PO SCH ×2 (08:44→21:12)
--- NOTE | 2017-04-24 12:29 | DISCHARGE SUMMARY ---
ADMISSION DATE: 04/12/2017 DISCHARGE DATE: 04/24/2017 CONSULTATIONS: 1. Dr. Maximilian Blount with infectious disease. 2. Dr. Wu with gastroenterology. PERTINENT PROCEDURES: EGD with esophageal dilatation showed erosive gastritis throughout the entire stomach and duodenitis. DISCHARGE DIAGNOSES: 1. Sepsis. 2. Scabies. 3. Diffuse erythroderma. 4. Dysphagia status post esophageal dilatation. 5. Vitamin D deficiency. 6. Gastritis. 7. Duodenitis. 8. Tobacco dependence. HOSPITAL COURSE: Ms. Zelaya is a 62-year-old female who was brought to the ED with generalized weakness, weight loss over last several months. On admission, the patient was noted to be severely malnourished with diffuse muscular atrophy, hypokalemic, difficulty swallowing. Chest CT was done that revealed mild emphysematous changes but no active infection was seen. CT of the abdomen and pelvis was unremarkable as well. The patient was noted to be febrile and hypotensive. She was admitted to the ICU. Blood and urine cultures were obtained. She was started on broad-spectrum antibiotics. Despite the antibiotics, the patient continued to have persistent fever. After further examination. She was noted to have scabies with erythroderma. She was treated with permethrin which resulted in improvement in the patient's skin lesions. She was also treated with Ancef. The patient did require pressor support for about 2 days but was able to be weaned off. GI was consulted due to her dysphagia. She underwent an EEG on 04/15/2017, at which time esophageal dilatation was performed. She was also noted to have erosive gastritis throughout the stomach as well as duodenitis. She was placed on PPIs. Her diet was slowly advanced. She clinically improved. She was able to move out of the ICU to a regular floor bed. Physical therapy was initiated. 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 She has been accepted to [facility]. VITAL SIGNS AT TIME OF DISCHARGE: Temperature is 98.9 degrees, heart rate 100, respirations 15, blood pressure is 114/56, O2 is 100% on room air. DISCHARGE DIET: Healthy heart. DISCHARGE MEDICATIONS: 1. Vitamin D2 76934 units p.o. every seven days on . 2. Protonix 40 mg p.o. daily. 3. Multivitamin 1 tablet oral twice a day. 4. MiraLAX 17 g p.o. daily. FOLLOW UP: Ms. Zelaya is being discharged to [facility] for long-term care. Return to the ED for any worsening of symptoms. DISCHARGE TIME: Greater than 30 minutes. Dictated by CIPRIANO Boss for Bryson Linton MD cc: Bryson Linton MD
--- NOTE | 2017-04-24 14:45 | PROGRESS NOTE ---
DATE: 04/23/2017 SUBJECTIVE: Ms. Zelaya is doing fine. She says she is feeling much better. Eating everything in sight. Has no problem swallowing. OBJECTIVE: Vital Signs: Blood pressure 120/50, pulse of 90, respirations 20, temperature 98 degrees. General: 62-year-old lady in no acute distress. HEENT: Mucosa pink and moist and anicteric. Neck: Supple. Trachea midline. Lungs: Clear but distant breath sounds. Heart: Normal first and second heart sounds. Regular in rhythm. Abdomen: Soft. Nontender. Bowel sounds present and normal. Extremities: No cyanosis, edema. Central nervous system: No focal deficit. LABORATORY DATA: White count 10.3, H and H is 11 and 33, platelet count 526,000. IMPRESSION: 1. Sepsis, resolved. 2. Cellulitis and erythroderma, resolved. 3. Dysphagia status post dilation, resolved. 4. Vitamin D deficiency. Replacement. 5. Smoking, tobacco dependence. Patient has been counseled. PLAN: I have talked to her about continuing anti-reflux measures and come to our office as an outpatient if she if she has any problems with dysphagia in the future. cc: Ciarra Russo MD
--- NOTE | 2017-04-24 17:01 | PROGRESS NOTE ---
DATE: 04/24/2017 SUBJECTIVE: Ms. Zelaya is actually medically stable for discharge, and was discharged today to [facility]; however, we have been told that because she has a history of nonspecific psychotic disorder which, according to her, she has never been treated with any medication and she is completely asymptomatic. The retirement is to come and evaluate the patient before they will accept her. We will, therefore, hold the discharge until the patient is evaluated by the staff from [facility] before we discharge her there. cc: Bryson Linton MD
[2017-04-24] MEDS: LOVENOX SUBQ SCH (21:12)
[2017-04-24] MEDS: DULCOLAX PR SCH (21:12)
[2017-04-25] MEDS: PRILOSEC PO SCH ×2 (05:48→06:31)
[2017-04-25] MEDS: THERA M PLUS PO SCH ×2 (09:59→21:11)
[2017-04-25] MEDS: VITAMIN D PO SCH (09:59)
--- NOTE | 2017-04-25 11:20 | PROGRESS NOTE ---
DATE: 04/25/2017 SUBJECTIVE: Patient is resting in bed. She is feeling better. Her discharge has been withheld as the rehab facility/retirement facility will evaluate her overall psychological status before accepting her. According to the nursing staff, the patient will probably be here for an additional 2 week period until the state evaluation is completed. The patient has been tolerating a diet well. She denies any fevers or rigors. Denies any nausea or vomiting. She is moving her bowels. PHYSICAL EXAMINATION: Vital Signs: Temperature of 98.7 degrees, pulse rate of 86, respiratory rate 16, blood pressure of 98/54, saturating 98% on room air. General Appearance: Thinly built, lying in bed, in no acute distress. HEENT: Mild pallor. No icterus. Neck: Supple. Abdomen: Soft, nontender, nondistended. Bowel sounds are heard. No guarding. No rebound. Extremities: No cyanosis, clubbing, edema. Neurologic: She is alert, awake, oriented. LABS: Hemoglobin and hematocrit are 11.2 and 33.4, white count of 10.3, platelet count of 526,000. Sodium 139, potassium 4.3, chloride 99, bicarb 20, anion gap 12, BUN of 12, creatinine 0.4, glucose 107. IMPRESSION AND PLAN: 1. Dysphagia, now resolved. Patient is tolerating food better. Recommendation to chew the food well. She will continue on proton pump inhibitors once a day for 3 months and then we will wean her down to Zantac 150 mg by mouth twice a day. 2. Cellulitis and erythroderma, resolved. 3. Her sepsis has resolved. 4. Tobacco dependence. The patient is working to quit smoking forever. 5. Anemia. We will start her on Iron C twice a day and multivitamin once daily. 6. Further recommends per hospital course. cc: MD Bryson Chandra MD [facility]
--- NOTE | 2017-04-25 16:56 | PROGRESS NOTE ---
DATE: 04/25/2017 SUBJECTIVE: The patient is resting comfortably in bed. No acute events noted overnight. OBJECTIVE: Vital Signs: Temperature 98.6 degrees, blood pressure 100/68, heart rate 82, respirations 16, O2 saturations 99% on room air. General: This is an elderly female lying in bed, in no acute distress. Head: Normocephalic atraumatic. Heart: S1, S2. Normal. Regular rate and rhythm. Lungs: Clear to auscultation bilaterally. No wheezing. No rales. No rhonchi. Abdomen: Positive bowel sounds. Soft, nontender, nondistended. Extremities: No edema. No cyanosis. Neurologic: The patient is alert and oriented x3. LABORATORY: White blood cell count 10, hemoglobin 11, hematocrit 33, platelets 526,000. Sodium 139, potassium 4.3, chloride 99, CO2 28, BUN 12, creatinine 0.4, glucose 107. ASSESSMENT AND PLAN: 1. Sepsis, resolved. 2. Diffuse erythroderma, resolved. 3. Scabies, resolved. 4. Dysphagia, status post esophageal dilation. Stable. 5. Vitamin D deficiency. Continue on vitamin D replacement. 6. Gastritis and duodenitis. Continue on omeprazole. 7. Deep vein thrombosis prophylaxis. Continue on Lovenox. 8. Disposition. The patient is stable for discharge. However, the patient disclosed a history of psychosis in the past. So a level was triggered and the patient will need to be assessed prior to acceptance at [facility]. cc: Katelyn Rincon MD
[2017-04-25] MEDS: ICAR-C PO SCH (21:11)
[2017-04-25] MEDS: DULCOLAX PR SCH (21:11)
[2017-04-25] MEDS: LOVENOX SUBQ SCH (22:05)
[2017-04-26] MEDS: PRILOSEC PO SCH (06:13)
[2017-04-26] MEDS: ICAR-C PO SCH ×2 (10:08→21:34)
[2017-04-26] MEDS: THERA M PLUS PO SCH ×2 (10:08→21:34)
--- NOTE | 2017-04-26 18:17 | PROGRESS NOTE ---
DATE: 04/26/2017 SUBJECTIVE: This patient is resting comfortably in bed. No acute events overnight. OBJECTIVE: Vital Signs: Temperature 98.2 degrees, pulse 92, respiratory rate 18, blood pressure 133/79, oxygen saturation 99 on room air. HEENT: Head normocephalic. No trauma. PERRLA. Neck: Supple. No JVD. No masses. Central trachea. Chest: Clear to auscultation. No wheezing. No rales. Abdomen: Soft, nontender, nondistended. Extremities: No edema. No clubbing. No cyanosis. Neurological: The patient is alert and oriented x3. No focal deficits. LABORATORY: WBC 10.3, hemoglobin 11.2, hematocrit 33.4, platelets 526,000. Sodium 139, potassium 4.3, chloride 99, bicarbonate 28, BUN 12, creatinine 0.4, glucose 107, calcium 9.8. ASSESSMENT AND PLAN: 1. Sepsis, resolved. 2. Diffuse erythroderma, resolved. 3. Scabies, resolved. 4. Dysphagia status post esophageal dilation, stable. 5. Vitamin D deficiency. Continue vitamin D replacement. 6. Gastritis and duodenitis. Continue with omeprazole. 7. Deep vein thrombosis prophylaxis. On Lovenox. 8. Disposition. This patient is stable for discharge. However the patient disclosed a history of psychosis in the past. So a level was triggered and the patient will need to be assessed prior to acceptance at [facility], apparently this evaluation is going to be next Saturday. cc: Jeanmarie Guo MD
[2017-04-26] MEDS: LOVENOX SUBQ SCH (21:34)
[2017-04-26] MEDS: DULCOLAX PR SCH (21:34)
[2017-04-27] MEDS: PRILOSEC PO SCH (06:03)
[2017-04-27 06:22] LABS: MANUAL DIFF NEEDED? NO
[2017-04-27 06:31] LABS: EOS# 0.43 X1000 (0.0-0.7); EOS% 5.2 % (0.0-10.0); HEMATOCRIT 35.5 % (37.0-47.0); HEMOGLOBIN 11.6 g/dL (12.0-16.0); IMM GRAN# 0.04 X1000 (0.0-0.04); IMM GRAN% 0.5 % (0.0-0.5); LYMPH# 4.94 X1000 (1.2-3.4); LYMPH% 59.8 % (20.5-51.1); MCH 30.4 PG (27-31); MCHC 32.7 g/dL (33-37); MCV 92.9 FL (81-99); MONO% 8.5 % (1.7-9.3); MPV 9.5 FL (7.4-10.4); PLT 632 X1000 (130-400); RBC 3.82 XMIL (4.2-5.4)
[2017-04-27 07:07] LABS: AGAP 9; BUN 11 mg/dL (8-22); CALCIUM 9.2 mg/dL (8.8-10.2); CHLORIDE 102 mmol/L (98-107); COSMO 278; POTASSIUM 4.5 mmol/L (3.5-5.1); SODIUM 140 mmol/L (136-145); TCO2 29 mmol/L (25-35)
[2017-04-27] MEDS: ICAR-C PO SCH ×2 (10:18→21:08)
[2017-04-27] MEDS: THERA M PLUS PO SCH ×2 (10:18→21:08)
--- NOTE | 2017-04-27 13:55 | PROGRESS NOTE ---
DATE: 04/27/2017 SUBJECTIVE: This patient is feeling good, no acute events overnight. OBJECTIVE: Vital Signs: Temperature 98.1, pulse 53, respiratory rate 18, blood pressure 124/61, oxygen saturation 100% on room air. HEENT: Head normocephalic. PERRLA. Neck: Supple. No JVD. No masses. Central trachea. Chest: Clear to auscultation. No wheezing. No rales. Abdomen: Soft, nontender, nondistended. No hepatosplenomegaly. Extremities: No edema. No clubbing. No cyanosis. Neurological: The patient is alert and oriented x3. No focal deficits. LABORATORY: WBC 8.2, hemoglobin 11.6, hematocrit 35.5, platelets 632. Sodium 140, potassium 4.5, chloride 102, bicarbonate 29, BUN 11, creatinine 0.4, glucose 89, calcium 9.2. ASSESSMENT AND PLAN: 1. Sepsis, resolved. 2. Diffuse erythroderma, resolved. 3. Scabies, resolved. 4. Dysphagia, status post esophageal dilation, stable. 5. Vitamin D deficiency. Continue with vitamin D replacement. 6. Gastritis and duodenitis. Continue with omeprazole. 7. Deep vein thrombosis prophylaxis. On Lovenox. DISPOSITION: This patient is stable for discharge. However, the patient disclosed a history of psychosis in the past. So a level was triggered and the patient will need to be assessed prior to acceptance at [facility], apparently this evaluation is going to be next Saturday. cc: Jeanmarie Guo MD
[2017-04-27] MEDS: LOVENOX SUBQ SCH (21:08)
[2017-04-27] MEDS: DULCOLAX PR SCH (21:08)
[2017-04-28] MEDS: PRILOSEC PO SCH (06:13)
[2017-04-28] MEDS: ICAR-C PO SCH ×2 (09:04→21:05)
[2017-04-28] MEDS: THERA M PLUS PO SCH ×2 (09:04→21:05)
[2017-04-28] MEDS: TYLENOL PO PRN ×2 (09:36→21:19)
--- NOTE | 2017-04-28 13:59 | PROGRESS NOTE ---
DATE: 04/28/2017 SUBJECTIVE: This patient is feeling well. No acute events overnight. OBJECTIVE: Vital Signs: Temperature 98 degrees, pulse 103, respiratory rate 18, blood pressure 118/62, oxygen saturation 99 on room air. HEENT: Head normocephalic. No trauma. PERRLA. Neck: Supple. No JVD. No masses. Central trachea. Chest: Clear to auscultation. No wheezing. No rales. Abdomen: Soft, nontender, nondistended. No hepatosplenomegaly. Extremities: No edema. No clubbing. No cyanosis. Decreased muscle mass. Neurologic: The patient is alert and oriented x3. No focal deficits. LABORATORY: No lab work done today. ASSESSMENT AND PLAN: 1. Sepsis, resolved. 2. Diffuse erythroderma, resolved. 3. Scabies, resolved. 4. Dysphagia status post esophageal dilation, stable. 5. Vitamin D deficiency. Continue vitamin D replacement. 6. Gastritis and duodenitis. Continue with omeprazole. 7. Deep vein thrombosis prophylaxis on Lovenox. DISPOSITION: This patient is stable for discharge. However, the patient disclosed a history of psychosis in the past. So a Level was triggered, and the patient will need to be assessed prior to acceptance at [facility]. Apparently, this evaluation is going to be next Saturday. cc: Jeanmarie Guo MD
[2017-04-28] MEDS: DULCOLAX PR SCH (21:05)
[2017-04-28] MEDS: LOVENOX SUBQ SCH (21:05)
[2017-04-29] MEDS: PRILOSEC PO SCH (06:04)
[2017-04-29] MEDS: ICAR-C PO SCH ×2 (08:04→20:53)
[2017-04-29] MEDS: THERA M PLUS PO SCH ×2 (08:04→20:53)
--- NOTE | 2017-04-29 20:09 | PROGRESS NOTE ---
DATE: 04/29/2017 SUBJECTIVE: The patient is resting comfortably in bed. She has no complaints. OBJECTIVE: Vital Signs: Temperature 98 degrees, blood pressure 116/50, heart rate 99, respirations 16, O2 saturations 96% on room air. General: This is a chronically ill-appearing, elderly female, lying in bed, in no acute distress. Head: Normocephalic, atraumatic. Heart: S1, S2. Normal. Regular rate and rhythm. Lungs: Clear to auscultation bilaterally. Abdomen: Positive bowel sounds. Soft, nontender, nondistended. Extremities: No edema. No cyanosis. Neurologic: The patient is alert and oriented x3. LABORATORY: None. ASSESSMENT AND PLAN: 1. Sepsis. Resolved. 2. Diffuse erythroderma. Resolved. 3. Scabies. Resolved. 4. Dysphagia, status post esophageal dilation. Stable. 5. Gastritis and duodenitis. Continue on omeprazole. 6. Vitamin D deficiency. Continue on vitamin D replacement. 7. Disposition. The patient will be discharged to rehab once cleared for acceptance. cc: Katelyn Rincon MD
[2017-04-29] MEDS: LOVENOX SUBQ SCH (20:53)
[2017-04-30] MEDS: DULCOLAX PR SCH (03:14)
[2017-04-30] MEDS: PRILOSEC PO SCH (06:15)
[2017-04-30] MEDS: ICAR-C PO SCH ×2 (08:55→20:20)
[2017-04-30] MEDS: THERA M PLUS PO SCH ×2 (08:55→20:20)
--- NOTE | 2017-04-30 14:13 | PROGRESS NOTE ---
DATE: 04/30/3027 SUBJECTIVE: The patient is resting comfortably in bed. No acute events noted overnight. OBJECTIVE: Vital Signs: Temperature 98 degrees, blood pressure 123/75, heart rate 82, respirations 16, O2 saturation is 100% on room air. General: This is an elderly female, lying in bed, in no acute distress. Head: Normocephalic, atraumatic. Heart: S1, S2. Normal. Regular rate and rhythm. Lungs: Clear to auscultation bilaterally. Abdomen: Positive bowel sounds. Soft, nontender, nondistended. Extremities: No edema. No cyanosis. LABS: White blood cell count 8.2, hemoglobin 11, hematocrit 35, platelets 632,000. ASSESSMENT AND PLAN: 1. Scabies. Resolved. 2. Sepsis. Resolved. 3. Dysphagia status post esophageal dilation. Stable. 4. Gastritis and duodenitis. Continue on omeprazole. 5. Vitamin D deficiency. Continue on vitamin D replacement. 6. Disposition. We will discharge to rehab once cleared for acceptance. cc: Katelyn Rincon MD
[2017-04-30] MEDS: LOVENOX SUBQ SCH (20:20)
[2017-05-01] MEDS: DULCOLAX PR SCH ×2 (02:51→20:06)
[2017-05-01] MEDS: PRILOSEC PO SCH (06:07)
[2017-05-01 07:03] LABS: AGAP 9; BUN 12 mg/dL (8-22); CHLORIDE 100 mmol/L (98-107); COSMO 277; POTASSIUM 4.3 mmol/L (3.5-5.1); SODIUM 139 mmol/L (136-145); TCO2 30 mmol/L (25-35)
[2017-05-01] MEDS: THERA M PLUS PO SCH ×3 (07:57→20:06)
[2017-05-01] MEDS: ICAR-C PO SCH ×3 (07:57→20:06)
--- NOTE | 2017-05-01 17:15 | PROGRESS NOTE ---
DATE: 05/01/2017 SUBJECTIVE: The patient is resting comfortably in bed. She has no complaints. OBJECTIVE: Vital Signs: Temperature 98 degrees, blood pressure 111/57, heart rate 80, respirations 16, O2 saturations 99% on room air. General: This is an elderly female, lying in bed, in no acute distress. Head: Normocephalic atraumatic. Heart: S1, S2. Normal. Regular rate and rhythm. Lungs: Clear to auscultation bilaterally. Abdomen: Positive bowel sounds. Soft, nontender, nondistended. Extremities: No edema. No cyanosis. No calf tenderness. Neurologic: The patient is alert and oriented x3. ASSESSMENT AND PLAN: 1. Diabetes. 2. Sepsis. 3. Dysphagia status post esophageal dilation. 4. Gastritis and duodenitis. 5. Vitamin D deficiency. 6. Disposition. The patient will be discharged to rehab once the level 2 report has been received and evaluated. cc: Katelyn Rincon MD MTDD
[2017-05-01] MEDS: LOVENOX SUBQ SCH (20:06)
[2017-05-02] MEDS: PRILOSEC PO SCH (06:04)
[2017-05-02] MEDS: VITAMIN D PO SCH (08:39)
[2017-05-02] MEDS: THERA M PLUS PO SCH ×2 (08:39→19:58)
[2017-05-02] MEDS: ICAR-C PO SCH ×2 (08:39→19:58)
--- NOTE | 2017-05-02 17:55 | PROGRESS NOTE ---
DATE: 05/02/2017 SUBJECTIVE: The patient is resting comfortably in bed. No acute events noted overnight. OBJECTIVE: Vital Signs: Temperature 98 degrees, blood pressure 122/60, heart rate 80, respirations 12, O2 saturation 96% on room air. General: This is an elderly female, lying in bed, in no acute distress. Head: Normocephalic, atraumatic. Heart: S1, S2 normal. Regular rate and rhythm. Lungs: Clear to auscultation bilaterally. Abdomen: Positive bowel sounds. Soft, nontender, nondistended. Extremities: No edema. No cyanosis. No calf tenderness. Neurologic: The patient is alert and oriented x3. LABORATORY STUDIES: Sodium 139, potassium 4.3, chloride 100, CO2 30, BUN 12, creatinine 0.5, glucose 96. ASSESSMENT AND PLAN: 1. Scabies. 2. Sepsis. 3. Dysphagia, status post esophageal dilation. 4. Gastritis and duodenitis. 5. Vitamin D deficiency. 6. Disposition. The patient will be discharged to rehab once clearance has been obtained. cc: Katelyn Rincon MD
[2017-05-02] MEDS: LOVENOX SUBQ SCH (19:59)
[2017-05-03] MEDS: DULCOLAX PR SCH ×2 (01:50→22:58)
[2017-05-03] MEDS: LOVENOX SUBQ SCH ×2 (01:51→22:59)
[2017-05-03] MEDS: ICAR-C PO SCH ×3 (01:51→22:59)
[2017-05-03] MEDS: THERA M PLUS PO SCH ×3 (01:51→22:59)
[2017-05-03] MEDS: PRILOSEC PO SCH (06:12)
[2017-05-03] MEDS: TYLENOL PO PRN (09:07)
--- NOTE | 2017-05-03 15:19 | PROGRESS NOTE ---
DATE: 05/03/2017 SUBJECTIVE: The patient is resting comfortably in bed. She has no complaints. OBJECTIVE: Vital Signs: Temperature 98, blood pressure 110/56, heart rate 74, respirations 16, O2 saturations 97% on room air. General: This is an elderly female, lying in bed, in no acute distress. Head: Normocephalic, atraumatic. Heart: S1, S2. Normal. Regular rate and rhythm. Lungs: Clear to auscultation bilaterally. No wheezing, no rales. No rhonchi. Abdomen: Positive bowel sounds. Soft, nontender, nondistended. Extremities: No edema. No cyanosis. No calf tenderness. Neurologic: The patient is alert and oriented x3. ASSESSMENT AND PLAN: We are currently awaiting rehab placement for the patient. Will continue to monitor the patient closely. cc: Katelyn Rincon MD
[2017-05-04] MEDS: PRILOSEC PO SCH (06:34)
[2017-05-04] MEDS: THERA M PLUS PO SCH ×2 (10:12→21:18)
[2017-05-04] MEDS: ICAR-C PO SCH ×2 (10:12→21:19)
--- NOTE | 2017-05-04 15:34 | PROGRESS NOTE ---
DATE: 04/16/2017 SUBJECTIVE: The patient is resting comfortably. Feels a lot better. OBJECTIVE: Vital Signs: Temp 100 degrees, blood pressure 130/60, heart rate 90, respirations 24, O2 saturation 100% on room air. General: Chronically ill elderly lady who is very thin, no acute distress. HEENT: Conjunctival pallor present. Neck: Supple. Trachea midline. Heart: Normal first and second heart sounds. Lungs: Clear. Abdomen: Soft, nontender, nondistended. Extremities: The patient has an excoriation from her own scratching. No edema and no cyanosis. 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 LABORATORY DATA: Hemoglobin 11 and 33, potassium low at 3.1, albumin 2. IMPRESSION AND PLAN: 1. Sepsis. She is on Hardik-Synephrine. Blood culture positive for Staph. Dr. Blount following. 2. Scabies being treated. 3. Gastritis on Protonix. 4. Hypertension. 5. Severe protein calorie malnutrition. She is on full liquids and she is currently on Clinimix as well. 6. Deep vein thrombosis prophylaxis on Lovenox. cc: Ciarra Russo MD
--- NOTE | 2017-05-04 15:35 | PROGRESS NOTE ---
DATE: 04/23/2017 SUBJECTIVE: Patient says she is feeling good. She did not have any complaint. There is a relative at bedside. OBJECTIVE: Vital signs: Blood pressure 120/50, pulse of 90 respirations 20, temperature 97.4 degrees. General: A 62-year-old lady looks older than her age but generally in good spirits and in no distress. HEENT: Mild conjunctival pallor. No icterus. Neck: Supple. Heart and Lungs: Are clear. Abdomen: No organomegaly. No ascites. Bowel sounds present. Normal. Extremities: There is no pedal edema. Her itching is better. 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 LABORATORY DATA: White count is down to 10.3. IMPRESSION AND PLAN: 1. Sepsis has resolved. 2. Cellulitis and erythroderma resolved. 3. Scabies treatment done. 4. Dysphagia. Patient is feeling very good after dilation and eating solid diet. 5. Vitamin D deficiency. 6. Tobacco dependence. 7. Continue GI prophylaxis. 8. Continue DVT prophylaxis. -9 cc: Ciarra Russo MD
--- NOTE | 2017-05-04 15:36 | PROGRESS NOTE ---
DATE: 04/26/2017 SUBJECTIVE: The patient is resting comfortably. Swallowing fine, eating solid diet without any problem and choking. OBJECTIVE: Vital signs: Temp 98 degrees, pulse 92, respiratory rate 18, blood pressure 130/79, O2 saturation 99%. HEENT: No scleral icterus. Mild conjunctival pallor. Neck: Supple. Trachea midline. Heart: Normal first and second heart sounds. Lungs: Are clear. Abdomen: Is soft, nontender. Neurological: Was alert and oriented. Extremities: Look better. LABORATORY DATA: H and H stable at 11 and 33. IMPRESSION AND PLAN: 1. Sepsis resolved. 2. Erythroderma resolved. 3. Scabies resolved. 4. Dysphagia resolved. 5. Vitamin D deficiency. 6. Gastritis and duodenitis. She is on omeprazole. 7. Deep vein thrombosis prophylaxis. On Lovenox. 8. Disposition. The patient is scheduled to go to rehab/[facility] but however she has some history of psychosis before. That is being sorted out. -0 cc: Ciarra Russo MD MTDD
--- NOTE | 2017-05-04 15:36 | PROGRESS NOTE ---
DATE: 05/03/2017 SUBJECTIVE: Patient is feeling fine. Eating better, getting stronger, walking around. OBJECTIVE: Vital signs: Stable at temperature 98 degrees, blood pressure 110/50, heart rate 74, respirations 16, O2 saturation 97. General: Elderly lady looks stronger, eating better and in a better mood. HEENT: Conjunctival pallor present. Neck: Supple. Trachea midline. Heart: Normal first and second heart sounds. Lungs: Are clear. Abdomen: Benign. No organomegaly. No ascites. Extremities: Are unremarkable. 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 IMPRESSION AND PLAN: 1. Sepsis resolved. 2. Scabies resolved. 3. Dysphagia resolved. She will follow up as an outpatient on a p.r.n. basis. 4. GI prophylaxis. 5. DVT prophylaxis. 6. Disposition, psychological evaluation. -1 cc: Ciarra Russo MD
--- NOTE | 2017-05-04 15:36 | PROGRESS NOTE ---
DATE: 04/30/2017 SUBJECTIVE: Patient is resting comfortably in bed, eating everything, feeling stronger. OBJECTIVE: Vital signs: Temp 98 degrees, blood pressure 120/70, heart rate 82, respirations 16, O2 saturation 100%. HEENT: The patient is an elderly lady lying in bed, no acute distress. HEENT: No scleral icterus. Slight conjunctival pallor present. Neck: Supple. Trachea midline. Heart and lungs: Are normal. Abdomen: No organomegaly. No ascites. Bowel sounds present. Normal. Extremities: Unremarkable. LABORATORY DATA: White count is down to 8, hemoglobin and hematocrit stable. IMPRESSION: 1. Sepsis resolved. 2. Scabies resolved. 3. Dysphagia resolved. 4. Gastritis on omeprazole. 5. Vitamin D deficiency. 6. Deep vein thrombosis prophylaxis. -7 cc: Ciarra Russo MD
--- NOTE | 2017-05-04 16:01 | PROGRESS NOTE ---
DATE: 05/04/2017 SUBJECTIVE: The patient is resting comfortably in bed. He has no complaints at this time. OBJECTIVE: Vital Signs: Temperature 98 degrees, blood pressure 122/65, heart rate 75, respirations 20 and O2 saturations 98% on room air. General: This is an elderly female lying in bed in no acute distress. Head: Normocephalic, atraumatic. Heart: S1, S2. Normal. Regular rate and rhythm. Lungs: Clear to auscultation bilaterally. No crackles. No rales. Abdomen: Positive bowel sounds. Soft, nontender, nondistended. Extremities: No edema. No cyanosis. Neurologic: The patient is alert and oriented x3. LABS: None. ASSESSMENT: 1. Sepsis. 2. Scabies. 3. Dysphagia status post esophageal dilation. 4. Vitamin D deficiency. PLAN: We are currently awaiting approval for the patient to be discharged to rehab. cc: Katelyn Rincon MD
[2017-05-04] MEDS: TYLENOL PO PRN (16:09)
[2017-05-04] MEDS: LOVENOX SUBQ SCH (21:18)
[2017-05-04] MEDS: DULCOLAX PR SCH (21:18)
[2017-05-05] MEDS: PRILOSEC PO SCH (06:38)
[2017-05-05] MEDS: THERA M PLUS PO SCH ×2 (08:00→22:50)
[2017-05-05] MEDS: ICAR-C PO SCH ×2 (08:00→22:51)
[2017-05-05] MEDS: DULCOLAX PR SCH (22:50)
[2017-05-05] MEDS: LOVENOX SUBQ SCH (22:51)
--- NOTE | 2017-05-06 03:49 | PROGRESS NOTE ---
DATE: 05/05/2017 SUBJECTIVE: The patient is resting comfortably in bed. No acute events noted overnight. OBJECTIVE: Vital Signs: Temperature 98.6 degrees, blood pressure 124/67, heart rate 76, respirations 20, O2 saturations 98% on room air. General: This is an elderly female lying in bed in no acute distress. Head: Normocephalic, atraumatic. Heart: S1, S2 normal. Regular rate and rhythm. Lungs: Clear to auscultation bilaterally. Abdomen: Positive bowel sounds. Soft, nontender, nondistended. Extremities: No edema. No cyanosis. No calf tenderness. Neurologic: The patient is alert oriented x3. ASSESSMENT: 1. Scabies. 2. Sepsis. 3. Vitamin D deficiency. 4. Dysphagia status post esophageal dilation. PLAN: The patient will be discharged to rehab once approval has been obtained. cc: Katelyn Rincon MD
[2017-05-06] MEDS: PRILOSEC PO SCH (06:42)
[2017-05-06] MEDS: ICAR-C PO SCH ×2 (08:03→21:56)
[2017-05-06] MEDS: THERA M PLUS PO SCH ×2 (08:03→21:56)
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
--- NOTE | 2017-05-06 15:08 | PROGRESS NOTE ---
DATE: 05/06/2017 SUBJECTIVE: Patient reports feeling fine. No fever. No chills. Not hurting anywhere. No acute issues as per nursing staff overnight. OBJECTIVE: Vital Signs: Temperature 98.3 degrees, heart rate 84, respiratory 14, blood pressure 114/64, O2 saturation 98% on room air. General Examination: This is a 62-year-old female lying in bed, in no acute distress. HEENT: Head is normocephalic, atraumatic. Neck: Supple. No JVD. Cardiovascular: S1, S2 heard. No murmurs, gallops, or rubs. Respiratory: Clear bilaterally to auscultation. No work of breathing or using accessory muscles. Abdomen: Soft, nontender to palpation. Bowel sounds present. No organomegaly. Extremities: No clubbing, cyanosis, or edema. Peripheral pulses present in all legs. Neurological: Patient is alert and oriented x3. ASSESSMENT: 1. Scabies. 2. Vitamin D deficiency. 3. Dysphagia, status post esophageal dilatation. 4. Physical deconditioned. 5. Patient will be discharged to rehab facility once approval has been obtained. cc: Jesus Ortiz MD
[2017-05-06] MEDS: TYLENOL PO PRN (18:05)
[2017-05-06] MEDS: LOVENOX SUBQ SCH (21:56)
[2017-05-07] MEDS: DULCOLAX PR SCH ×2 (05:19→20:42)
[2017-05-07] MEDS: PRILOSEC PO SCH (06:29)
[2017-05-07] MEDS: THERA M PLUS PO SCH ×2 (08:04→20:41)
[2017-05-07] MEDS: ICAR-C PO SCH ×2 (08:04→20:41)
--- NOTE | 2017-05-07 12:06 | PROGRESS NOTE ---
DATE: 05/07/2017 SUBJECTIVE: Patient reports feeling fine. No complaints today. No acute issues overnight as noted as per nursing staff. OBJECTIVE: Vital Signs: Temperature 98.3 degrees, heart rate 85, respiratory rate 20, blood pressure 133/53, O2 saturation 100% on room air. General examination: This is a 62-year-old female lying in bed in no acute distress. Cardiovascular exam: S1, S2 heard. No murmurs, gallops, or rubs. Regular rate and rhythm. Respiratory exam: Clear bilaterally to auscultation. No work of breathing or using accessory muscles. Abdomen: Soft, nontender to palpation. Bowel sounds present. No organomegaly. Extremities: No clubbing, cyanosis, or edema. Peripheral pulses present in both legs. Neurological exam: Patient alert and oriented x3. Moves 4 extremities. ASSESSMENT: 1. Scabies. 2. Vitamin D deficiency. 3. Dysphagia status post esophageal dilatation. 4. Physical deconditioning. PLAN: The patient will be discharged to rehab facility once approval has been obtained from the State. cc: Jesus Ortiz MD
[2017-05-07] MEDS: TYLENOL PO PRN (18:23)
[2017-05-07] MEDS: LOVENOX SUBQ SCH (20:41)
[2017-05-08] MEDS: PRILOSEC PO SCH (06:11)
[2017-05-08] MEDS: ICAR-C PO SCH ×2 (09:00→21:50)
[2017-05-08] MEDS: THERA M PLUS PO SCH ×2 (09:01→21:50)
--- NOTE | 2017-05-08 12:31 | DISCHARGE SUMMARY ---
ADMISSION DATE: 04/12/2017 DISCHARGE DATE: 05/09/2017 CONSULTATIONS: 1. Maximilian Blount MD - infectious Disease 2. Lavell Wu MD - Gastroenterology PERTINENT PROCEDURES: Esophagogastroduodenoscopy with esophageal dilatation that showed erosive gastritis throughout the entire stomach and duodenitis. DISCHARGE DIAGNOSES: 1. Sepsis 2. Scabies 3. Diffuse erythroderma. 4. Dysphagia, status post esophageal dilatation. 5. Vitamin D deficiency. 6. Gastritis. 7. Duodenitis. 8. Tobacco dependence. HOSPITAL COURSE: Ms. Zelaya is a 62-year-old, female, brought to the ED with generalized weakness and weight loss over the past several months. On admission , she was noted to be severely malnourished, diffuse muscular atrophy, hypokalemic, and difficulty swallowing. Chest CT was done that revealed mild erythematous changes, but no acute infection. CT of the abdomen and pelvis was unremarkable as well. She was noted to be febrile and hypotensive. She was admitted to the ICU. Blood and urine cultures were obtained. She was started on broad-spectrum antibiotics. Despite antibiotics, the patient continued to have persistent fever. After further evaluation, she was noted to have scabies with erythroderma. She was treated with permethrin, which resulted in improvement in the patient's skin lesions. She was also treated with in the left. GI was consulted for her dysphagia. She underwent an esophagogastroduodenoscopy with dilatation on 04/15/2017. Also noted erosive gastritis, as well as duodenitis. Placed on PPIs. Her diet was slowly advanced. She clinically improved. She was able to move out of the ICU to the regular floor. Where she began physical therapy. [employer] contacted [facility] because of the patient's living situation. Her agreed with long-term placement for the patient. Initially she was set for discharge on 04/19/2017; however, that rehab placement fell through. They found turn additional rehab placement on 04/24/2017 with [place]; however , upon discharge this triggered a state evaluation. She has undergone an evaluation from the [facility] and she is appropriate for discharge on 05/08/2017 with the state's approval. She has had no change in her status and is appropriate for discharge. VITAL SIGNS: Temperature is 97.6 degrees, heart rate 78, respirations 16, blood pressure 125/63, O2 is 98% on room air. DISCHARGE DIET: GI soft. DISCHARGE MEDICATIONS: 1. Vitamin D 74313 units p.o. 7 days, taken every . 2. Icar-C one each p.o. b.i.d. 3. Thera-M Plus one each p.o. b.i.d. 4. Protonix 40 mg p.o. daily. 5. MiraLAX 17 g p.o. daily. FOLLOWUP: Ms. Zelaya is being discharged to [facility] for long-term care in [place]. She will return to the ED for any worsening of symptoms. Discharge time 40 minutes Dictated by CIPRIANO Boss for Armani Deluna MD cc: Armani Deluna MD MTDD
--- NOTE | 2017-05-08 13:51 | PROGRESS NOTE ---
DATE: 05/08/2017 Patient reports feeling fine. Denies any fever, chills, nausea, vomiting. No acute issues overnight as per nursing staff. OBJECTIVE: Vital Signs: Temperature 97.6 degrees, heart rate 78, respiratory rate 16, blood pressure 125/63, O2 saturation 98% on room air. General examination: This is a 62-year-old female lying in bed, in no acute distress. Cardiovascular: S1, S2 heard. No murmurs, gallops, or rubs. Regular rate and rhythm. Respiratory: Clear bilaterally to auscultation. No work of breathing or using accessory muscles. Abdomen: Soft, nontender to palpation. Bowel sounds present. No organomegaly. Extremities: No clubbing, cyanosis, or edema. Peripheral pulses present in both legs. Neurological: Patient alert and oriented x3. Moves 4 extremities. ASSESSMENT: 1. Scabies. 2. Vitamin D deficiency. 3. Dysphagia status post esophageal dilatation. 4. Physical deconditioning. PLAN: Patient will be discharged to rehab facility once approval has been obtained from the state. cc: Jesus Ortiz MD
--- NOTE | 2017-05-08 15:37 | PROGRESS NOTE ---
DATE: 05/07/2017 SUBJECTIVE: The patient is feeling fine. She says she is stronger. She is eating everything in sight. No shortness of breath. OBJECTIVE: Vital Signs: Temperature 98 degrees, heart rate 85, respirations 20, blood pressure 130//53, O2 saturation 100% on room air. General: A 62-year-old lady in no acute distress. HEENT: Mild conjunctival pallor present. Neck: Supple. Trachea midline. Heart: Normal first and second heart sounds. Lungs: Clear. Abdomen: Benign. No organomegaly. Extremities: No cyanosis or clubbing. Neurological: Intact. IMPRESSION: 1. Dysphagia secondary to long-term reflux, dilated, which is resolved. 2. Vitamin D deficiency. 3. Dermatitis, secondary to scabies infection, better. 4. Physical deconditioning. PLAN: I think patient is getting ready to be discharged. She probably needs some physiotherapy to help her get stronger before she can go home. That is being arranged. cc: Ciarra Russo MD
[2017-05-08] MEDS: LOVENOX SUBQ SCH (21:50)
[2017-05-09] MEDS: DULCOLAX PR SCH (06:08)
[2017-05-09] MEDS: PRILOSEC PO SCH (06:09)
[2017-05-09 07:30] VITALS: BP 123/67
[2017-05-09] MEDS: THERA M PLUS PO SCH ×2 (07:41→09:27)
[2017-05-09] MEDS: VITAMIN D PO SCH ×2 (07:41→09:27)
[2017-05-09] MEDS: TYLENOL PO PRN (07:41)
[2017-05-09] MEDS: ICAR-C PO SCH ×2 (07:41→09:27)
== END 2017-05-09 12:12 ==
LOC: ED 17:08 → 3N 21:37 → SUATTDRO 21:37 → 3N 21:55 → ICU 04-14 08:24 → 4N 04-18 18:24
PROVIDERS: ATTEND Internal Medicine